=== PATIENT | male | born 1975 | race Caucasian/White ===

== ENCOUNTER 2017-01-11 23:36 | Emergency (ER) | payer OTHER ==
[2017-01-11 23:11] LABS: ASCORBIC ACID (UR NOT ORDER) 40 (NEG); BILIRUBIN, URINE NEGATIVE (NEG); ER URINALYSIS TAT 0 Hrs 00 Mins; KETONE, URINE NEGATIVE (NEG); LEUKOCYTE ESTERASE(NOT OR NEG (NEG); NITRITE (URINE) NEG (NEG); WBC (NOT ORDERED) (RFLEX) < 1 (0-5)
[~2017-01-11 23:36] MED LIST: ADVIL PO; ALEVE220 MG PO; ALTA5 PO; ATV1 PO; C5 PO; CAT3 PO; CELEXA20 PO; CELEXA40 MG PO; CENTRUM TAB1 TAB PO; FEMARA PO; FLOMAX4 PO; IBRANCE100 PO; LIQUID TEARS OPH; MSCONT100 PO; NATURL FIBER68 % PO; NEUR300 PO; OXYCOD PO; PCET PO; PERCOCET1 TA4 PO; POTASSIUM OTC PO; POTASSIUM PO; PROTONIX PO; ROXICODONE30 MG PO; T PO; TAMOXIFEN20 M1 PO; ZOFRAN4 PO
== END 2017-01-12 00:07 | disposition home or self-care (01) ==
LOC: ER 23:36
PROVIDERS: Emergency Medicine
DX: M79.2 Neuralgia and neuritis, unspecified (principal); Z87.891 Personal history of nicotine dependence; Z85.3 Personal history of malignant neoplasm of breast; Z85.841 Personal history of malignant neoplasm of brain; Z79.01 Long term (current) use of anticoagulants; Z79.899 Other long term (current) drug therapy
CPT/HCPCS: 72170; 73501-RT; 81001; 99284

== ENCOUNTER 2017-01-20 13:49 | Inpatient (IN) | payer OTHER ==
--- NOTE | ~2017-01-20 | HP ---
History And Physical [place] [id number] [facility] [place]. [address] NAME: CAMPOS PRUETT : 71 STATUS : ADM IN [facility]#: [id number] AGE: 41 ADM/REG DATE : 01/20/17 MR#: [id number] REPORT SERV DATE: 01/20/17 DICTATED BY: HEMANT THAPA II DATE: 01/20/17 REPORT STATUS : Draft TRANSCRIBED BY: MODL DATE: 01/20/17 DATE OF ADMISSION: 01/20/2017 PRIMARY ONCOLOGIST: Dr. Jeronimo Joseph. CHIEF COMPLAINT: Headache, jaw numbness, and severe mid thoracic back pain. HISTORY OF PRESENT ILLNESS: The patient is a 41-year-old male with a history of metastatic breast cancer followed by Dr. Jeronimo Joseph, who presented from his clinic due to severe intractable back pain. The patient states he has had chronic back pain ever since he was found to have metastatic lesions to his spine and pelvis back in September. However, over the last month or so, the patient's back pain has become increasingly worse and now he is having radiating pain throughout his rib cage on the right side to where he can now barely ambulate without severe pain. He denies any radiating pain down his legs or weakness in his legs or upper extremities. His limitation is mainly due to pain. He also complains about a severe headache over the last week, which is bitemporal and constant. His main neurologic complaint is right jaw numbness which extends to the midline, that has been present since September. According to Dr. Garcia's note, he looked at the patient under CT while doing his simulation, but according to the patient, did not see anything obvious. Dr. Joseph was concerned he may have some metastatic component causing his symptoms. The patient has been admitted for further imaging and pain control. Otherwise, the patient denies any shortness of breath, chest pain, nausea, vomiting, or diarrhea. REVIEW OF SYSTEMS: 10-point review of systems is otherwise negative except for HPI. PAST MEDICAL HISTORY: 1. Metastatic breast cancer, status post chemo and radiation. Currently on Xeloda. Followed by Dr. Jeronimo Joseph. 2. Hypertension. 3. 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 PAST SURGICAL HISTORY: Left mastectomy, lung biopsy, and appendectomy. FAMILY HISTORY: Maternal grandmother with cancer of unknown type. SOCIAL HISTORY: The patient is . Lives with and daughter. He smoked about a pack a day for 20-25 years, but quit at the age 35. He drinks occasional alcohol. ALLERGIES: NO KNOWN DRUG ALLERGIES. HOME MEDICATIONS: Celexa, Neurontin, Aleve, Protonix, potassium, gluconate. PHYSICAL EXAMINATION: History And Physical [address] [address] NAME: CAMPOS PREUTT : 71 STATUS : ADM IN PAT#: [id number] AGE: 41 ADM/REG DATE : 01/20/17 MR#: [id number] REPORT SERV DATE: 01/20/17 DICTATED BY: HEMANT THAPA II DATE: 01/20/17 REPORT STATUS : Draft TRANSCRIBED BY: ARIELA DATE: 01/20/17 VITAL SIGNS: Blood pressure 171/79, O2 saturation 98% on room air, temperature 98.4, pulse 86, respirations 18. GENERAL: The patient is alert and oriented x3. No acute distress. NECK: Supple. Nontender. No lymphadenopathy or thyromegaly. HEENT: Moist mucous membranes. Pupils are equal, round, and reactive to light. Conjunctivae clear. RESPIRATORY: Lungs are clear to auscultation bilaterally. No wheezes, rhonchi, or rales. CHEST: He does have tenderness to palpation over the right lateral rib cage and into the back. CARDIOVASCULAR: Regular rate and rhythm. No murmurs, rubs, or gallops. ABDOMEN: Soft, nontender, nondistended. Normoactive bowel sounds. EXTREMITIES: No cyanosis, clubbing, or edema. SKIN: No lesions, rashes, or wounds. NEURO: Diminished sensation to light touch over the right mandible to midline. Otherwise, no deficits. Cranial nerves 2 through 12 intact. LABORATORY DATA: Pending. ASSESSMENT AND PLAN: The patient is a 41-year-old male with: 1. Severe back pain concerning for progressive disease of the spine. The patient does not complain of any lower extremity radiculopathy or weakness to suggest cord compression, and his pain extending around to his ribs could certainly be a radiculopathy component, but seems fairly diffuse throughout his ribcage, possibly extensive rib metastases. We will obtain a CT of his spine with contrast to rule out any neurologic encroachment. Otherwise, placed on a JAIL MANAGER for pain control. 2. Severe bitemporal headache. We will check an MRI of the brain. 3. Right mandibular numbness concerning for metastatic spread. Extend the MRI of the brain down to the jaw. 4. Metastatic breast cancer, on Xeloda. Deferred to Oncology. 5. Peripheral neuropathy, gabapentin. 6. Patient is full code. 7. DVT prophylaxis with Lovenox. JESSICA/ARIELA Hemant Thapa II, MD / [id number] CC: Hemant Thapa II, MD
--- NOTE | ~2017-01-20 | DS ---
Discharge Summary [facility] [address] [place]. [address] NAME: CAMPOS PRUETT : 71 STATUS : DIS IN PAT#: [id number] AGE: 41 ADM/REG DATE : 01/20/17 MR#: [id number] REPORT SERV DATE: 01/24/17 DICTATED BY: DATE: REPORT STATUS : Draft TRANSCRIBED BY: MODL DATE: 01/23/17 ADMISSION DATE: 01/20/2017 DISCHARGE DATE: 01/23/2017 CONSULTATIONS: 1. Jeronimo Joseph M.D., [facility]. 2. Santi Garcia M.D., Radiation Oncology. PERTINENT TESTS AND PROCEDURES: 1. CT of the cervical, thoracic, and lumbar spine with contrast, 01/20/2017: Impression: Widespread metastatic disease, most severe in the lower thoracic and lumbar regions. There does not appear to be any central canal compromise noted. Findings consistent with the patient's history of breast cancer and metastatic disease. 2. MRI of the brain without contrast, 01/20/2017: Impression: Skull, mandibular, and intracranial metastases identified. 3. MRA/MRI of the brain with and without contrast, 01/22/2017: Impression:. a. Focal lesions within the brain, primarily the left parietal lobe and cerebellum, with very faint enhancement consistent with metastasis. No new abnormalities compared with 01/20/2017 imaging. b. Abnormal marrow signal consistent with metastatic disease in the mandible and clivus. CHIEF COMPLAINT UPON ADMISSION: Headache, jaw numbness, and severe mid thoracic back pain. HOSPITAL COURSE: Please refer to history and physical dated 01/20/[address] Black Herrera for complete details pertaining to the patient's initial presentation upon admission and health history. Briefly, the patient is a 41-year-old male with a history of metastatic breast cancer to the lung and bone, followed by Dr. Jeronimo Joseph of [facility]. The patient presented to [facility] on 01/20/2017 for a work-in visit to be evaluated for severe intractable back pain. The patient has experienced chronic back pain ever since being diagnosed with metastatic lesions to his spine and pelvis in 09/2016. However, over the past month, the patient's back pain has become increasingly worse and now it is radiating throughout his ribcage. The patient also complained of severe headache and right jaw numbness. The patient was referred for direct admission to [facility] for further evaluation and treatment for severe back pain concerning for progressive disease of the spine. During this admission, MRI of the brain with and without contrast was obtained and reported new SEASONAL CLERK involvement to include the mandible, skull, brain, and clivus. The patient was placed on low-dose dexamethasone 2 mg p.o. twice daily and Radiation Oncology was consulted for outpatient followup in the near future. 1. Severe back/right rib pain. This is secondary to thoracic, lumbar, and pelvis Discharge Summary [facility] [address] [facility] [place]. [address] NAME: CAMPOS PRUETT : 71 STATUS : DIS IN PAT#: [id number] AGE: 41 ADM/REG DATE : 01/20/17 MR#: [id number] REPORT SERV DATE: 01/24/17 DICTATED BY: DATE: REPORT STATUS : Draft TRANSCRIBED BY: MODL DATE: 01/23/[address] of the spine was negative for canal compromise. The patient was initially placed on Dilaudid BOX SEALING MACHINE OPERATOR pump due to intractable pain and then MS Contin q.12 h. was added. The patient responded well to addition of MS Contin and BOX SEALING MACHINE OPERATOR pump was discontinued today. The patient will continue MS Contin SR 60 mg p.o. every 12 hours and morphine sulfate IR 30 mg p.o. every six hours as needed for fxotbptz-se-mztcus breakthrough pain. 2. Severe bitemporal headache. This is related to new SEASONAL CLERK metastases. The patient was placed on low dose of dexamethasone per Oncology. The patient has responded well to this treatment. Headache remains persistent, but manageable. 3. Right mandibular numbness. This is secondary to new diagnosis of metastases to the mandible. The patient will follow up with Radiation Oncology for evaluation and treatment plan within the near future. 4. Metastatic breast cancer, left breast, status post left mastectomy. The patient is status post chemotherapy and radiation treatment. The patient is currently on Xeloda. This medication will be continued. The patient will follow up with Dr. Jeronimo Joseph in 10 days. 5. 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 This was secondary to pathological fracture related to metastases. No interventions were indicated during this admission. 6. Chronic anemia. This is secondary to underlying chronic disease. The patient's hemoglobin and hematocrit remained stable with no transfusions indicated during this admission. 7. Hypertension. The patient has recent history of taking ramipril 5 mg tablet p.o. daily and clonidine 0.3 mg p.o. three times daily. The patient reported that these medications were discontinued per Dr. Joseph approximately two weeks ago secondary to hypotension. During this admission, the patient's systolic blood pressure has ranged between 137 and 180. The patient stated he had noticed a recent upward trend in his blood pressure over the last few days at home. Ramipril 5 mg p.o. daily was reinitiated. Dr. Joseph said he would monitor blood pressure and restart clonidine if indicated. 8. Peripheral neuropathy. This is chemo-induced. Continue home dose of gabapentin. 9. Depression. The patient's mental status remained baseline throughout this admission. Continue home dose of Celexa. DISCHARGE CONDITION: At the time of discharge, the patient is hemodynamically stable. DISCHARGE DIET: Regular diet as tolerated. DISCHARGE MEDICATIONS: 1. Celexa 40 mg tablet p.o. daily. 2. Decadron 2 mg tablet p.o. with breakfast and supper. 3. Gabapentin 300 mg tablet p.o. twice daily. 4. MS Contin SR tablet 60 mg p.o. every 12 hours. 5. Protonix 40 mg tablet p.o. daily. 6. MiraLAX 17 g p.o. daily. 7. Ramipril 5 mg tablet p.o. daily. 8. Senokot two tablets p.o. at bedtime as needed. 9. Potassium gluconate 99 mg p.o. daily. Discharge Summary [address] [address] NAME: CAMPOS PRUETT : 71 STATUS : DIS IN PAT#: [id number] AGE: 41 ADM/REG DATE : 01/20/17 MR#: [id number] REPORT SERV DATE: 01/24/17 DICTATED BY: DATE: REPORT STATUS : Draft TRANSCRIBED BY: MODL DATE: 01/23/17 10.Morphine sulfate 30 mg IR tablet p.o. every six hours as needed for swicybid-df-lkpqpy breakthrough pain. Hold for sedation. DISCHARGE INSTRUCTIONS: 1. Follow up with Dr. Jeronimo Joseph of [facility] in 10 days. 2. Follow up with Dr. Garcia of Radiation Oncology. Office will call the patient at home to set up appointment. The patient was educated to return to the emergency department for any acute onset of severe intractable headache, visual disturbances, syncopal or near syncopal episodes, intractable pain that is not controlled with home medications or any other health concerns that are deviations from his baseline status at the time of this discharge. GABBY/ARIELA SEN Crandall / [id number] CC: Black Herrera II, MD
[2017-01-20] MEDS ORDERED: CELEXA40 MG PO (15:19)
[2017-01-20] MEDS ORDERED: PROTONIX PO (15:20)
[2017-01-20] MEDS ORDERED: NEUR300 PO (15:20)
[2017-01-20] MEDS ORDERED: ALEVE220 MG PO (15:20)
[2017-01-20] MEDS ORDERED: POTASSIUM GLUCO99 MG PO (15:21)
[2017-01-20 16:29] LABS: BASOPHILS 0.1 %; BASOPHILS ABSOLUTE 0.01 10/3/uL (0.0-0.16); EOSINOPHILS ABSOLUTE 0.07 10/3/uL (0.0-0.53); HEMATOCRIT 35.3 % (40.0-51.0); HEMOGLOBIN 11.7 g/dL (13.6-17.8); IMMATURE GRANULOCYTES 0.1 %; IMMATURE GRANULOCYTES ABSOLUTE 0.01 10/3/uL (0.0-0.11); LYMPHOCYTES 11.3 %; LYMPHOCYTES ABSOLUTE 0.76 10/3/uL (0.67-4.30); MEAN CORPUS HGB CONC 33.1 g/dL (32.0-36.0); MEAN CORPUSCULAR HEMOGLOB 32.8 pg (26.0-34.0); MEAN CORPUSCULAR VOLUME 98.9 fL (80-100); MEAN PLATELET VOLUME 9.2 fL (9.2-13.0); MONOCYTES 6.5 %; MONOCYTES ABSOLUTE 0.44 10/3/uL (0.21-1.20); NEUTROPHILS ABSOLUTE 5.45 10/3/uL (2.02-8.40); PLATELET COUNT 205 10/3/uL (150-400); RBC DISTRIBUTION WIDTH 18.5 % (12.0-16.0); RED CELL COUNT 3.57 10/6/uL (4.7-6.1); WHITE BLOOD CELLS 6.7 10/3/uL (4.5-10.5)
[2017-01-20 16:30] LABS: MANUAL DIFF NO %
[2017-01-20 16:42] LABS: A/G RATIO 0.9 (0.7-1.9); ALBUMIN 3.5 G/DL (3.5-5.0); ALKALINE PHOSPHATASE 157 U/L (45-117); BUN (BLOOD UREA NITROGEN) 9 MG/DL (6-23); CHLORIDE, SERUM 104 MMOL/L (96-112); CO2 (CARBON DIOXIDE) 27 MMOL/L (24-34); CREATININE 0.91 MG/DL (0.70-1.30); GFR AFRICAN AMERICAN 119 ML/MIN (>=60); GFR NON AFRICAN AMERICAN 103 ML/MIN (>=60); GLOBULIN 4.1 G/DL (2.5-4.1); GLUCOSE, SERUM 100 MG/DL (60-99); SGOT(AST) 20 U/L (5-40); SGPT(ALT) 18 U/L (5-65); SODIUM, SERUM 140 MMOL/L (135-148); TOTAL BILIRUBIN 0.4 MG/DL (0-1.2); TOTAL PROTEIN 7.6 G/DL (6.0-8.5)
[2017-01-22 07:53] LABS: BASOPHILS 0 %; EOSINOPHILS 0.2 %; EOSINOPHILS ABSOLUTE 0.01 10/3/uL (0.0-0.53); HEMATOCRIT 35.1 % (40.0-51.0); HEMOGLOBIN 11.9 g/dL (13.6-17.8); IMMATURE GRANULOCYTES 0.2 %; IMMATURE GRANULOCYTES ABSOLUTE 0.01 10/3/uL (0.0-0.11); LYMPHOCYTES ABSOLUTE 0.62 10/3/uL (0.67-4.30); MEAN CORPUS HGB CONC 33.9 g/dL (32.0-36.0); MEAN CORPUSCULAR HEMOGLOB 32.8 pg (26.0-34.0); MEAN CORPUSCULAR VOLUME 96.7 fL (80-100); MONOCYTES 3.7 %; MONOCYTES ABSOLUTE 0.23 10/3/uL (0.21-1.20); NEUTROPHILS 85.9 %; NEUTROPHILS ABSOLUTE 5.33 10/3/uL (2.02-8.40); PLATELET COUNT 208 10/3/uL (150-400); RED CELL COUNT 3.63 10/6/uL (4.7-6.1); WHITE BLOOD CELLS 6.2 10/3/uL (4.5-10.5)
[2017-01-22 07:56] LABS: MANUAL DIFF NO %
[2017-01-22 08:03] LABS: BUN (BLOOD UREA NITROGEN) 10 MG/DL (6-23); CALCIUM, SERUM 9.4 MG/DL (8.5-10.4); CHLORIDE, SERUM 102 MMOL/L (96-112); CO2 (CARBON DIOXIDE) 28 MMOL/L (24-34); CREATININE 0.86 MG/DL (0.70-1.30); GFR AFRICAN AMERICAN 123 ML/MIN (>=60); GFR NON AFRICAN AMERICAN 106 ML/MIN (>=60); SODIUM, SERUM 138 MMOL/L (135-148)
[2017-01-22 08:06] LABS: GLUCOSE, SERUM 122 MG/DL (60-99)
[2017-01-23 06:17] LABS: BASOPHILS 0 %; EOSINOPHILS 0 %; HEMATOCRIT 35.7 % (40.0-51.0); HEMOGLOBIN 11.7 g/dL (13.6-17.8); IMMATURE GRANULOCYTES 0.1 %; IMMATURE GRANULOCYTES ABSOLUTE 0.01 10/3/uL (0.0-0.11); LYMPHOCYTES 11.8 %; LYMPHOCYTES ABSOLUTE 0.81 10/3/uL (0.67-4.30); MEAN CORPUS HGB CONC 32.8 g/dL (32.0-36.0); MEAN CORPUSCULAR HEMOGLOB 32.6 pg (26.0-34.0); MEAN CORPUSCULAR VOLUME 99.4 fL (80-100); MEAN PLATELET VOLUME 8.9 fL (9.2-13.0); MONOCYTES 5.5 %; MONOCYTES ABSOLUTE 0.38 10/3/uL (0.21-1.20); NEUTROPHILS 82.6 %; NEUTROPHILS ABSOLUTE 5.69 10/3/uL (2.02-8.40); PLATELET COUNT 216 10/3/uL (150-400); RBC DISTRIBUTION WIDTH 18.2 % (12.0-16.0); RED CELL COUNT 3.59 10/6/uL (4.7-6.1); WHITE BLOOD CELLS 6.9 10/3/uL (4.5-10.5)
[2017-01-23 06:22] LABS: MANUAL DIFF NO %
[2017-01-23 06:29] LABS: BUN (BLOOD UREA NITROGEN) 11 MG/DL (6-23); CALCIUM, SERUM 9.3 MG/DL (8.5-10.4); CHLORIDE, SERUM 103 MMOL/L (96-112); CO2 (CARBON DIOXIDE) 28 MMOL/L (24-34); CREATININE 0.93 MG/DL (0.70-1.30); GFR AFRICAN AMERICAN 116 ML/MIN (>=60); GFR NON AFRICAN AMERICAN 100 ML/MIN (>=60); GLUCOSE, SERUM 124 MG/DL (60-99); POTASSIUM, SERUM 3.7 MMOL/L (3.5-5.3); SODIUM, SERUM 140 MMOL/L (135-148)
[2017-01-23] MEDS ORDERED: ALTA5 (12:17)
[2017-01-23] MEDS ORDERED: SENTAB PO (12:17)
[2017-01-23] MEDS ORDERED: MSCONT60 PO (12:19)
[2017-01-23] MEDS ORDERED: DEX2 PO (12:20)
[2017-01-23] MEDS ORDERED: MSIMMREL PO (12:21)
[2017-01-23] MEDS ORDERED: MIRALAX POWDER1 PKT PO (12:22)
== END 2017-01-23 13:30 | disposition home or self-care (01) | DRG 543 ==
LOC: 4EA 13:49
PROVIDERS: Internal Medicine; Nurse Practitioner Family
DX: C79.51 Secondary malignant neoplasm of bone (principal); C78.00 Secondary malignant neoplasm of unspecified lung; C50.922 Malignant neoplasm of unspecified site of left male breast; F32.9 Major depressive disorder, single episode, unspecified; I10 Essential (primary) hypertension; D64.9 Anemia, unspecified; G62.9 Polyneuropathy, unspecified
CPT/HCPCS: 70551; 70553; 72126; 72129; 72132; 80048; 80053; 85025; A9270-GY; A9577; J0360; Q9967

== ENCOUNTER 2017-02-27 19:48 | Inpatient (IN) | payer OTHER ==
--- NOTE | ~2017-02-27 | HP ---
History And Physical [place] [address] [place]. [address] NAME: CAMPOS PRUETT : 71 STATUS : ADM IN PAT#: [id number] AGE: 41 ADM/REG DATE : 02/27/17 MR#: [id number] REPORT SERV DATE: 02/28/17 DICTATED BY: RADAMES PANDEY DATE: 02/28/17 REPORT STATUS : Draft TRANSCRIBED BY: MODL DATE: 02/28/17 DATE OF ADMISSION: 02/27/2017 CHIEF COMPLAINT: A 41-year-old male with metastatic breast cancer, now presenting with intractable abdominal pain, nausea, vomiting, and diarrhea. HISTORY OF PRESENT ILLNESS: The patient's history was obtained through careful interview with the patient and , coupled with review of [facility] medical records. The patient first developed breast cancer in 2013, was found to be metastatic at that time. He is on chronic Xeloda and has had significant radiation therapy as well. He follows with Dr. Jeronimo Joseph and Dr. Garcia. His last radiation treatment was completed about 1-1/2 weeks ago. Recently in 2017, he has had evidence of spread into the brain and other parts of his body. Over the last week, he has had increasing abdominal pain. He describes it mostly as an upper abdominal discomfort that radiates diffusely. He describes the quality as "huge knots" 10/10 severity, unremitting, associated with nausea, vomiting, and diarrhea. He has also had rawness in his mouth with multiple ulcers forming, and it has gotten so bad that he cannot even eat or drink anything because of severity of pain. He has been trying some Magic mouthwash with only limited improvement in his symptoms. He has had a very poor appetite and poor oral intake. Recently, he has had lower back discomfort, chills but no fevers, some night sweats. He has been lethargic. He has lost about 10 pounds over the last few months. No chest pain. No shortness of breath. No headache. REVIEW OF SYSTEMS: Otherwise, a 14-point review of systems was obtained and was negative. PAST MEDICAL HISTORY: 1. Breast cancer with mets including the brain, followed by Dr. Jeronimo Joseph and Dr. Garcia. 2. Hypertension. 3. Neuropathy. PAST SURGICAL HISTORY: 1. Left mastectomy. 2. Appendectomy. 3. Right hip surgery. History And Physical [place] [address] [facility] [place]. [address] NAME: CAMPOS PRUETT : 71 STATUS : ADM IN [facility]#: [id number] AGE: 41 ADM/REG DATE : 02/27/17 MR#: [id number] REPORT SERV DATE: 02/28/17 DICTATED BY: RADAMES PANDEY DATE: 02/28/17 REPORT STATUS : Draft TRANSCRIBED BY: ARIELA DATE: 02/28/17 ALLERGIES: NO KNOWN DRUG ALLERGIES. SOCIAL HISTORY: Quit smoking when he was 35 years old. Drinks occasional social alcohol. He is . He has a 14-year-old daughter and 19-year-old son. He lives in [place], [place]. FAMILY HISTORY: Grandmother with cancer. CURRENT MEDICATIONS: Include Xeloda 2000 mg p.o. b.i.d., Celexa 40 mg p.o. daily, Neurontin 300 mg p.o. b.i.d., MS Contin 60 mg p.o. b.i.d., morphine immediate release 30 mg every 6 hours p.r.n., Movantik 25 mg p.o. daily, Zofran p.r.n., Protonix 40 mg p.o. daily, ramipril 5 mg p.o. daily, trazodone 50 mg p.o. at bedtime, and Magic mouthwash. PHYSICAL EXAMINATION: VITAL SIGNS: Temperature 98.7, pulse 100, blood pressure 128/78, respiratory rate 19, O2 saturation 98% on room air. GENERAL: A chronically ill-appearing male in evidence of distress secondary to abdominal pain and vomiting. HEENT: Pupils are equal, round, and reactive to light. No conjunctival pallor. No scleral icterus. Nares are patent. Oropharynx is clear of obstruction. Dry mucous membranes. NECK: Trachea midline. No thyromegaly. LYMPH: No cervical lymphadenopathy. No supraclavicular lymphadenopathy. RESPIRATORY: Clear to auscultation at bases. No wheezes, rales, or rhonchi. Normal respiratory effort. CARDIOVASCULAR: Tachycardic, regular rhythm. No murmurs, rubs, or gallops. No extremity edema is appreciated. ABDOMEN: Diffusely tender by exam, nonfocal. There is guarding and rebound. It is distended. There are diminished bowel tones. No hepatosplenomegaly. DERMATOLOGICAL: Warm and dry extremities. No pallor. No cyanosis. PSYCHIATRIC: Normal affect. Good mood. Alert and oriented x3. LABORATORY DATA: Lactic acid elevated at 4.4. Liver enzymes within normal limits. White blood cell count 7.0, hemoglobin 14, hematocrit 42, platelets 246. Sodium 142, potassium 3.9, chloride 109, bicarb 21, BUN 15, creatinine 1.36 from baseline creatinine of 0.9, glucose 164. STUDIES: 1. 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 No specific acute intraabdominal process. 2. Chest x-ray by my own evaluation shows fullness in the right hilum it seems. ASSESSMENT AND PLAN: 1. Severe intractable abdominal pain. Place on a MATLAB DEVELOPER Dilaudid. Provide supportive care. 2. Metastatic breast cancer, worsening. Consult Oncology. 3. Oral ulcers, unable to eat. Start Magic mouthwash. 4. Diarrhea. Check Clostridium difficile toxin. 5. Acute kidney injury. Place on IV fluids. History And Physical [address] [address] NAME: CAMPOS PRUETT : 71 STATUS : ADM IN [facility]#: [id number] AGE: 41 ADM/REG DATE : 02/27/17 MR#: [id number] REPORT SERV DATE: 02/28/17 DICTATED BY: RADAMES PANDEY DATE: 02/28/17 REPORT STATUS : Draft TRANSCRIBED BY: MODL DATE: 02/28/17 6. Lactic acidosis. Question whether this could be the beginning of bowel ischemic changes ?. We will place on IV fluids, provide supportive care, and follow lactic acid closely. KPL/MODL Radames Pandey M.D. / [id number] CC: MD Jeronimo Aparicio II, M.D. John A Fortney, M.D.
--- NOTE | ~2017-02-27 | DS ---
Discharge Summary [address] [place]. [address] NAME: CAMPOS PRUETT : 71 STATUS : DIS IN PAT#: [id number] AGE: 41 ADM/REG DATE : 02/27/17 MR#: [id number] REPORT SERV DATE: 03/01/17 DICTATED BY: DATE: REPORT STATUS : Draft TRANSCRIBED BY: MODL DATE: 02/28/17 ADMISSION DATE: 02/27/2017 DISCHARGE DATE: 02/28/2017 DISCHARGE DIAGNOSES: 1. Acute intractable abdominal pain. 2. Metastatic breast cancer. 3. Oral ulcers. 4. Acute diarrhea. 5. Peripheral neuropathy. 6. Mild increase in creatinine. 7. Elevated liver enzymes. 8. Hypertension. CONSULTATIONS: None. PERTINENT TESTS AND PROCEDURES: 1. CT of the abdomen and pelvis without contrast on 02/27/2017, impression:. a. New 5 mm right lower lobe, and the lingular segment 7 mm pulmonary nodule, as well as stable additional multifocal pulmonary nodules, right middle lobe and both lower lobes, suspicious for mild interval progression of pulmonary metastatic disease. b. New multifocal osteoblastic and lytic bone lesions including multiple ribs, multiple thoracic and lumbar vertebra, sacrum, bilateral iliac, right pubic symphysis, and left femoral neck, and intertrochanteric portion of the left proximal femur. c. Interval status right hip hemiarthroplasty. d. Hepatic steatosis superimposed, scattered hyperdense nodules most suspicious for development of liver metastatic disease. 2. Chest x-ray on 02/27/2017, impression; atelectasis in left perihilar region has resolved. Pulmonary vessels are normal. Lungs are clear. Osseous structures intact. 3. Urinalysis, specimen collected on 02/28/2017, result negative for urinary tract infection. HOSPITAL COURSE: Please refer to history and physical dated 02/28/[address] Timmy English for complete details pertaining to the patient's initial presentation upon admission and health history. Briefly, the patient is a 41-year-old male, with a history of metastatic breast cancer, who presented to the emergency department on 02/27/2017, with complaints of intractable abdominal pain, nausea, vomiting, and diarrhea. The patient reported mild abdominal pain over the past week, increasing in severity over the last 24 to 48 hours prior to admission. The patient also reported acute onset of nausea with vomiting and diarrhea. Initial diagnostic workup included CT of the abdomen and chest which showed new right lung Discharge Summary [address] [place]. [address] NAME: CAMPOS PRUETT : 71 STATUS : DIS IN PAT#: [id number] AGE: 41 ADM/REG DATE : 02/27/17 MR#: [id number] REPORT SERV DATE: 03/01/17 DICTATED BY: DATE: REPORT STATUS : Draft TRANSCRIBED BY: MODL DATE: 02/28/17 disease, osteoblastic disease, and likely liver metastatic disease. Otherwise, no acute intraabdominal processes were identified. The patient was admitted for further evaluation and treatment of severe intractable abdominal pain, with no clear etiology. The patient was placed on full liquid diet and provided a Dilaudid BOY'S ADVISER pump for intractable pain. The patient responded well to the pain management regimen and aggressive IV fluid therapy. Abdominal pain has almost completely resolved and the patient has had no episodes of diarrhea since last night. Per patient report, he is almost returned to baseline status. 1. Acute intractable abdominal pain, etiology remained unclear. Initial diagnostic workup was negative for any underlying infection or acute intraabdominal process. The patient has tolerated a full liquid diet throughout this entire day without any increase in abdominal pain, or nausea and vomiting. The patient will go home on a full liquid diet to increase in a stepwise fashion as tolerated. He will also be provided a prescription for Phenergan tablets to use every six hours as needed for nausea and vomiting. 2. Metastatic breast cancer. The patient has known metastases to lung, bone, and EVENT PLANNING INTERN. CT of the abdomen and pelvis obtained during this admission, showed concern for disease progression, to include possible new liver metastases. The patient is currently under the care of Dr. Jeronimo Joseph, [facility]. Currently, the patient is receiving Xeloda on an outpatient basis. This is patient's week off therapy, the patient just completed radiation therapy to treat EVENT PLANNING INTERN metastases. Follow up with Dr. Jeronimo Joseph on 03/09/2017 as scheduled. 3. Oral ulcers, this is secondary to radiation therapy to treat metastases to the mandible. The patient has had limited response with MD Barajas mouthwash, however, ulcers are improving per patient report. 4. Acute diarrhea. The patient reported uncontrolled diarrhea on Monday, however last episode was last night. Stool studies were not obtained, secondary to diarrhea resolving. This may be related to patient's Dilaudid therapy, however, may also be related to acute viral syndrome. The patient was instructed to hold Movantik until diarrhea has completely resolved. 5. Peripheral neuropathy. This is chemotherapy induced, continue home dose of gabapentin. 6. Mild increase in creatinine. This was likely related to dehydration, secondary to nausea and vomiting. The patient's creatinine returned to normal with aggressive IV fluid hydration. BUN and creatinine are 15 and 1.02 today. 7. Elevated lactate. Upon admission lactate was 4.4, however, there were no clinical signs or symptoms of infection and diagnostic evaluation to include imaging negative for underlying infectious process. Lactate trended down to 2.5 today and white blood count has remained within normal limits. Exact etiology remains unclear. However, may be related to increase in liver enzymes during this admission. No signs or symptoms of sepsis. 8. Increased alkaline phosphatase. This may be related to new concern for liver metastases per report obtained from CT of the abdomen and pelvis. Alkaline phosphatases were initially elevated to 232 upon admission and trended down today to 192. All other liver enzymes are within normal limits. 9. Hypertension. Continue home medication. DISCHARGE CONDITION: At the time of discharge, the patient is hemodynamically stable. Discharge Summary [address] [address] NAME: CAMPOS PRUETT : 71 STATUS : DIS IN PAT#: [id number] AGE: 41 ADM/REG DATE : 02/27/17 MR#: [id number] REPORT SERV DATE: 03/01/17 DICTATED BY: DATE: REPORT STATUS : Draft TRANSCRIBED BY: ARIELA DATE: 02/28/17 DISCHARGE DIET: Full liquid diet to be advanced as tolerated. DISCHARGE MEDICATIONS: 1. Celexa 40 mg tablet p.o. daily. 2. Neurontin 300 mg tablet p.o. twice daily. 3. MS Contin 60 mg SR tablet p.o. twice daily. 4. Morphine immediate release 30 mg tablet p.o. every six hours as needed. 5. Protonix 40 mg tablet p.o. daily. 6. Altace 5 mg tablet p.o. daily. 7. Desyrel 50 mg tablet p.o. daily at bedtime. 8. Movantik 25 mg tablet p.o. daily as needed. 9. Zofran 8 mg tablet p.o. every eight hours as needed. 10.Magic mouthwash 15 mL p.o. every four hours as needed. 11.Xeloda 500 mg tablet, take 2000 mg twice daily x14 days. Hold for seven days and then repeat cycle. The patient is currently on off week, this medication will be restarted per [facility]. 12.Phenergan 25 mg tablet, take 1/2 to one tablet p.o. every six hours as needed for nausea. DISCHARGE INSTRUCTIONS: 1. Followup for scheduled outpatient CT scan of the chest, abdomen, and pelvis on 03/08/2017 per [facility]. 2. Follow up with Dr. Jeronimo Joseph office visit on 03/09/2017. The patient was instructed to return to the emergency department for any acute onset of fever 100.4 degrees or higher lasting more than one hour, recurrence of intractable abdominal pain, nausea, vomiting, uncontrolled diarrhea, or any other concerns that are deviations from his baseline health status at the time of this discharge. PRIMARY ONCOLOGIST: Jeronimo Joseph M.D. DICTATED BY: SEN Crandall/ARIELA SEN Crandall / [id number] CC: Black Herrera II, MD
[~2017-02-27 19:48] MED LIST changes: +ALTA5; +DEX2 PO; +MIRALAX POWDER1 PKT PO; +MSCONT60 PO; +MSIMMREL PO; +POTASSIUM GLUCO99 MG PO; +SENTAB PO
[2017-02-27 20:00] LABS: BASOPHILS 0.1 %; BASOPHILS ABSOLUTE 0.01 10/3/uL (0.0-0.16); EOSINOPHILS 0.1 %; EOSINOPHILS ABSOLUTE 0.01 10/3/uL (0.0-0.53); ER CBC TAT 0 Hrs 08 Mins; IMMATURE GRANULOCYTES 0.4 %; IMMATURE GRANULOCYTES ABSOLUTE 0.03 10/3/uL (0.0-0.11); LYMPHOCYTES 8.1 %; LYMPHOCYTES ABSOLUTE 0.57 10/3/uL (0.67-4.30); MEAN CORPUSCULAR HEMOGLOB 33.9 pg (26.0-34.0); MEAN CORPUSCULAR VOLUME 97.9 fL (80-100); MEAN PLATELET VOLUME 9.5 fL (9.2-13.0); MONOCYTES 7.8 %; MONOCYTES ABSOLUTE 0.55 10/3/uL (0.21-1.20); NEUTROPHILS 83.5 %; NEUTROPHILS ABSOLUTE 5.84 10/3/uL (2.02-8.40); PLATELET COUNT 246 10/3/uL (150-400); RBC DISTRIBUTION WIDTH 17.2 % (12.0-16.0)
[2017-02-27 20:01] LABS: HEMATOCRIT 42.7 % (40.0-51.0); HEMOGLOBIN 14.8 g/dL (13.6-17.8); MANUAL DIFF NO %; MEAN CORPUS HGB CONC 34.7 g/dL (32.0-36.0); RED CELL COUNT 4.36 10/6/uL (4.7-6.1)
[2017-02-27 20:16] LABS: A/G RATIO 0.9 (0.7-1.9); BUN (BLOOD UREA NITROGEN) 15 MG/DL (6-23); CALCIUM, SERUM 9.3 MG/DL (8.5-10.4); CHLORIDE, SERUM 109 MMOL/L (96-112); CO2 (CARBON DIOXIDE) 21 MMOL/L (24-34); CREATININE 1.36 MG/DL (0.70-1.30); GFR AFRICAN AMERICAN 73 ML/MIN (>=60); GFR NON AFRICAN AMERICAN 63 ML/MIN (>=60); GLOBULIN 4.3 G/DL (2.5-4.1); GLUCOSE, SERUM 164 MG/DL (60-99); POTASSIUM, SERUM 3.9 MMOL/L (3.5-5.3); SGOT(AST) 44 U/L (5-40); SGPT(ALT) 23 U/L (5-65); SODIUM, SERUM 142 MMOL/L (135-148); TOTAL BILIRUBIN 0.8 MG/DL (0-1.2); TOTAL PROTEIN 8.3 G/DL (6.0-8.5)
[2017-02-27 20:17] LABS: ALKALINE PHOSPHATASE 232 U/L (45-117)
[2017-02-27] MEDS ORDERED: MSCONT60 PO (20:57)
[2017-02-27] MEDS ORDERED: TRAZ50 PO (20:58)
[2017-02-27] MEDS ORDERED: [UNRECOGNIZED DRUG - OTHER] PO (20:58)
[2017-02-27] MEDS ORDERED: PROTONIX PO (20:59)
[2017-02-27] MEDS ORDERED: CELEXA40 MG PO (20:59)
[2017-02-27] MEDS ORDERED: ALTA5 PO (21:00)
[2017-02-27] MEDS ORDERED: ZOFRAN8 PO (21:00)
[2017-02-27] MEDS ORDERED: MSIMMREL PO (21:01)
[2017-02-27] MEDS ORDERED: XELODA PO (21:05)
[2017-02-27] MEDS ORDERED: MOVANTIK25 MG PO (21:06)
[2017-02-27] MEDS ORDERED: NEUR300 PO (21:10)
[2017-02-28 03:48] LABS: ASCORBIC ACID (UR NOT ORDER) NEG (NEG); BILIRUBIN, URINE NEGATIVE (NEG); KETONE, URINE TRACE MG/DL (NEG); LEUKOCYTE ESTERASE(NOT OR NEG (NEG); WBC (NOT ORDERED) (RFLEX) 5 (0-5)
[2017-02-28 06:10] LABS: BASOPHILS 0.2 %; BASOPHILS ABSOLUTE 0.01 10/3/uL (0.0-0.16); EOSINOPHILS 0.6 %; EOSINOPHILS ABSOLUTE 0.03 10/3/uL (0.0-0.53); HEMATOCRIT 34.6 % (40.0-51.0); HEMOGLOBIN 11.6 g/dL (13.6-17.8); IMMATURE GRANULOCYTES 0.4 %; IMMATURE GRANULOCYTES ABSOLUTE 0.02 10/3/uL (0.0-0.11); LYMPHOCYTES 16.6 %; LYMPHOCYTES ABSOLUTE 0.83 10/3/uL (0.67-4.30); MANUAL DIFF NO %; MEAN CORPUS HGB CONC 33.5 g/dL (32.0-36.0); MEAN CORPUSCULAR HEMOGLOB 33.4 pg (26.0-34.0); MEAN CORPUSCULAR VOLUME 99.7 fL (80-100); MEAN PLATELET VOLUME 9.5 fL (9.2-13.0); MONOCYTES 10.2 %; MONOCYTES ABSOLUTE 0.51 10/3/uL (0.21-1.20); PLATELET COUNT 178 10/3/uL (150-400); RBC DISTRIBUTION WIDTH 17.4 % (12.0-16.0); RED CELL COUNT 3.47 10/6/uL (4.7-6.1)
[2017-02-28 06:14] LABS: INTERNATIONAL NORMAL RATI 1.2 UNITS (-); PARTIAL THROMBO TIME 24.6 SEC (22.5-37.2); PROTIME (NOT ORD) 15.4 SEC (12.0-14.5)
[2017-02-28 06:32] LABS: ALBUMIN 3.2 G/DL (3.5-5.0); ALKALINE PHOSPHATASE 192 U/L (45-117); BUN (BLOOD UREA NITROGEN) 15 MG/DL (6-23); CALCIUM, SERUM 7.2 MG/DL (8.5-10.4); CHLORIDE, SERUM 113 MMOL/L (96-112); CO2 (CARBON DIOXIDE) 26 MMOL/L (24-34); CREATININE 1.02 MG/DL (0.70-1.30); GFR AFRICAN AMERICAN 104 ML/MIN (>=60); GFR NON AFRICAN AMERICAN 90 ML/MIN (>=60); GLOBULIN 3.2 G/DL (2.5-4.1); GLUCOSE, SERUM 106 MG/DL (60-99); PHOSPHORUS, SERUM 2.1 MG/DL (2.5-4.5); POTASSIUM, SERUM 3.8 MMOL/L (3.5-5.3); SGOT(AST) 33 U/L (5-40); SGPT(ALT) 17 U/L (5-65); SODIUM, SERUM 145 MMOL/L (135-148); TOTAL BILIRUBIN 0.6 MG/DL (0-1.2); TOTAL PROTEIN 6.4 G/DL (6.0-8.5)
[2017-02-28] MEDS ORDERED: PR25 PO (16:45)
== END 2017-02-28 17:02 | disposition home or self-care (01) | DRG 392 ==
LOC: ER 19:48 → 4EA 23:31
PROVIDERS: Internal Medicine; Nurse Practitioner Acute Care
DX: R10.9 Unspecified abdominal pain (principal); N17.9 Acute kidney failure, unspecified; E87.2 Acidosis; G62.9 Polyneuropathy, unspecified; C50.929 Malignant neoplasm of unspecified site of unspecified male breast; K12.1 Other forms of stomatitis; I10 Essential (primary) hypertension
CPT/HCPCS: 71010; 74176; 80053; 81001; 83605; 83690; 83735; 84100; 84443; 85025; 85610; 85730; 96374; 96375; 96376; 99285; A9270-GY; J1170; J2405; J2550

== ENCOUNTER 2017-03-07 23:50 | Inpatient (IN) | payer OTHER ==
--- NOTE | ~2017-03-07 | CONSULT ---
Radiation Oncology Consult [id number] [facility] [place]. [address] NAME: CAMPOS VALDIVIA : 71 STATUS : ADM Marcelo PAT#: [id number] AGE: 41 ADM/REG DATE : 03/07/17 MR#: [id number] REPORT SERV DATE: 03/09/17 DICTATED BY: YORDY JUNIOR DATE: 03/09/17 REPORT STATUS : Draft TRANSCRIBED BY: ARIELA DATE: 03/09/17 RADIATION ONCOLOGY CONSULTATION CLINICAL SUMMARY: A 41-year-old white male with metastatic breast cancer, status post radiotherapy to the pelvis, right hip, jaw, and also to the brain with stereotactic radiosurgery, and several spine lesions. HISTORY OF PRESENT ILLNESS: Mr. Valdivia was recently admitted for recurrent upper abdominal discomfort, cramping, and nausea. He was previously hospitalized two weeks ago for similar symptoms, which improved with increasing pain medication and supportive care. The symptoms have abated while on pain medication in the hospital. He has completed radiotherapy to lower thoracic spine approximately four weeks ago. He reports slowly increasing pain in the anterior pelvis as well as the bilateral hips over the past several months and currently requires long-acting morphine 60 mg twice daily. He is also under treatment with Dr. Joseph with systemic therapy. REVIEW OF SYSTEMS: An 11-point review of systems was obtained. Pertinent positives and negatives listed above. PAST MEDICAL HISTORY: Breast cancer with metastasis, neuropathy, hypertension, right hip surgery and replacement, left mastectomy, and appendectomy. SOCIAL HISTORY: He has quit smoking. Lives in [place], [place]. with 14-year- old daughter and 19-year-old son. FAMILY HISTORY: Grandmother with cancer. PHYSICAL EXAMINATION: GENERAL: A well-developed overweight white male sitting in exam chair, in no acute distress. Alert and oriented x4. Performance status 1 to 2. ENT: Moist mucosa. Hearing impaired. NECK: Supple without adenopathy or thyromegaly. EYES: Sclerae anicteric. Pupils equal, round, and reactive to light. PULMONARY: Clear to auscultation bilaterally. Good respiratory effort. CARDIOVASCULAR: Regular rate and rhythm. No peripheral edema. ABDOMEN: Soft, nontender, nondistended. Positive bowel sounds. NEUROLOGIC: Nonfocal. MUSCULOSKELETAL: Palpation of the bilateral hips elicits tenderness on the right greater than left hip, additionally in the anterior pelvic near the pubic symphysis on the right side and in the upper sacrum. IMAGING: Reviewed the images and agree with the above findings. ASSESSMENT AND PLAN: 1. Worsening pain in the bilateral hips, upper sacrum, and anterior pelvis: Review of Radiation Oncology Consult [address] [place]. [address] NAME: CAMPOS VALDIVIA : 71 STATUS : ADM Marcelo PAT#: [id number] AGE: 41 ADM/REG DATE : 03/07/17 MR#: [id number] REPORT SERV DATE: 03/09/17 DICTATED BY: YORDY JUNIOR DATE: 03/09/17 REPORT STATUS : Draft TRANSCRIBED BY: ARIELA DATE: 03/09/[address] images of the chest, abdomen, and pelvis reveals new or progressive lytic bone lesions. This corresponds to the pain demonstrated today. He has received short course of radiotherapy to multiple areas including the right hip and mid-upper right sacrum in late 2015. I recommended additional radiotherapy to the lytic lesions surrounding the right and left hip as well as the anterior right pubic symphysis and ramus. Additional radiotherapy to the upper sacrum/L5 enlarging tumor may also be beneficial. After discussion, the patient prefers to discuss this further with Dr. Garcia, who returns on Monday. I believe this is reasonable since pain at this time is controlled. We will arrange for CT simulation for potential radiotherapy planning following that appointment. 2. Systemic therapy: Recently started Xgeva as well as Xeloda per Dr. Joseph. 3. Recurrent nausea, vomiting, and abdominal discomfort: Previous radiotherapy to the lower thoracic spine in mid January, which may be causing gastric side effects and also uncontrolled pain may also be contributing, which should be addressed shortly; however, this would not explain the recurrent nature of his current symptoms. Deferred to hospitalist for further workup and evaluation. LUIS/ARIELA Yordy Junior MD / [id number] CC: Odalys Garcia M.D. Kevin P Luce, M.D. John A Fortney, M.D.
--- NOTE | ~2017-03-07 | DS ---
Discharge Summary [address] [id number] [facility] [place]. [address] NAME: CAMPOS PRUETT : 71 STATUS : DIS IN PAT#: [id number] AGE: 41 ADM/REG DATE : 03/07/17 MR#: [id number] REPORT SERV DATE: 03/14/17 DICTATED BY: TOMMY DALLAS DATE: 03/13/17 REPORT STATUS : Draft TRANSCRIBED BY: MODL DATE: 03/13/17 ADMISSION DATE: 03/07/2017 DISCHARGE DATE: 03/13/2017 DISCHARGE DIAGNOSES: 1. Bilateral hip and low back pain due to metastatic breast cancer. 2. Nausea and vomiting, controlled. 3. Metastatic breast cancer. 4. Diarrhea/constipation, resolved. 5. Acute kidney injury, resolved. CONSULTATION: 1. Oncology, Dr. Jeronimo Joseph. 2. Radiation Oncology, Dr. Yordy Junior. IMAGIN. CT chest, abdomen, and pelvis on 03/08/2017. Impression: Metastatic breast cancer with left hilar and mediastinal adenopathy. There are several bilateral lung nodules. The largest is a left 1.7 cm. The largest on the right is 1.6 cm. There are few liver metastasis involving both the right and left lobes of the liver. The largest is 3 cm. The patient has diffuse fatty infiltration of liver. Extensive bone metastasis involving right ribs, right scapula, thoracic vertebral bodies, lumbar vertebral bodies, sacral vertebral bodies, and both iliac bones and left femur. 2. Chest x-ray on 03/10/2017. Impression: Interval development of diffuse central interstitial thickening suggesting edema with trace right pleural effusion, unchanged right chest Port-A-Cath. 3. MRI of the brain, 03/10/2017. Impression: Mild interval improvement in diminishing size of pre-existing left supratentorial and left cerebral anti-nodules/metastasis. No new metastasis. Significant interval improvement in the subcaudal edema associated with posterior left portal lobe since 01/22/2017. LABORATORY DATA: WBCs 3.5, hemoglobin 8.9, hematocrit 26.6, and platelet count 121. Sodium is 141, potassium is 4.2, chloride is 108, CO2 of 27, BUN is 7, creatinine 0.87, glucose is 80, calcium is 8.1. HOSPITAL COURSE: Please refer to history and physical dictated on 03/08/[address] Timmy English as well as consultation notes. This is a 41-year-old male, presenting with metastatic breast cancer under the care of Dr. Jeronimo Joseph. He did present in [facility]'s Emergency Room with complaints of intractable nausea, vomiting, diarrhea, and abdominal pain. Stating that he has had no relief over the past several days prior to this admission. 1. Bilateral hip and lower back pain due to #3. The patient had uncontrolled pain at home. Had previously been on MS Contin, and oxycodone. The patient was initially placed on a Dilaudid FLATWORK PRESSER pump. Duragesic was then added, MS Contin was discontinued as Discharge Summary [id number] [place]. [address] NAME: CAMPOS PRUETT : 71 STATUS : DIS IN [facility]#: [id number] AGE: 41 ADM/REG DATE : 03/07/17 MR#: [id number] REPORT SERV DATE: 03/14/17 DICTATED BY: TOMMY DALLAS DATE: 03/13/17 REPORT STATUS : Draft TRANSCRIBED BY: ARIELA DATE: 03/13/17 the patient has been off FLATWORK PRESSER pump for approximately 48 hours. The pain is being controlled with Duragesic 75 mcg patch, change every 72 hours as well as Dilaudid 4 mg p.o. every 4 hours for breakthrough pain. 2. Nausea and vomiting due to chemo. The patient again was unable to tolerate p.o. at home. Initially, started on a clear liquid diet. Zofran, Compazine, and Ativan were added. The patient's nausea has been controlled, he will be discharged home with the addition of Ativan to his medications. 3. Metastatic breast cancer followed by Dr. Jeronimo Joseph. The patient has been followed with Dr. Joseph during this hospital stay. We will follow up with him outpatient in two to three days to discuss further treatment plans. 4. Diarrhea/constipation. The patient initially stated he had diarrhea. Stool studies were negative due possibly to narcotics. The patient did experience constipation. The patient has been advised to continue stool softeners at home due to the medications he is now taking. He did state understanding. 5. Acute kidney injury. The patient noted initial acute kidney injury upon admission, following IV hydration this was resolved. At this time BUN is 7 and creatinine 0.87. DISCHARGE MEDICATIONS: 1. Celexa 40 mg one p.o. daily. 2. Neurontin 300 mg p.o. every 8 hours. 3. Movantik 25 mg p.o. daily p.r.n. for constipation. 4. Aleve 220 mg p.o. twice daily p.r.n. 5. Protonix 40 mg one p.o. every morning. 6. Altace 5 mg one p.o. at bedtime. 7. Potassium 10 mEq p.o. daily. 8. Transdermal Scop patch one patch every 72 hours for nausea. 9. Trazodone 50 mg one p.o. at bedtime. 10.Magic mouth wash 15 mL every 4 hours p.r.n. 11.Phenergan 25 mg, 12.5 mg p.o. every 6 hours p.r.n. for nausea. 12.Dilaudid 4 mg one p.o. every 4 hours p.r.n. for nausea. 13.Ativan 2 mg one p.o. every 8 hours p.r.n. for nausea and anxiety. 14.Fentanyl patch 25 mcg one patch topical every 72 hours. This patient is being discharged home in hemodynamically stable condition. He will follow up with Dr. Jeronimo Joseph in two to three days. This discharge took greater than 30 minutes. DICTATED BY: LEROY Kerns/ARIELA Tommy Dallas NP Discharge Summary [address] [address] NAME: CAMPOS PRUETT : 71 STATUS : DIS IN PAT#: [id number] AGE: 41 ADM/REG DATE : 03/07/17 MR#: [id number] REPORT SERV DATE: 03/14/17 DICTATED BY: TOMMY DALLAS DATE: 03/13/17 REPORT STATUS : Draft TRANSCRIBED BY: MODL DATE: 03/13/17 / [id number] CC: MD Jeronimo Kelly M.D.
--- NOTE | ~2017-03-07 | HP ---
History And Physical [address] [place]. [address] NAME: CAMPOS PRUETT : 71 STATUS : ADM Marcelo PAT#: [id number] AGE: 41 ADM/REG DATE : 03/07/17 MR#: [id number] REPORT SERV DATE: 03/08/17 DICTATED BY: RADAMES PANDEY DATE: 03/08/17 REPORT STATUS : Draft TRANSCRIBED BY: MODL DATE: 03/08/17 DATE OF ADMISSION: 03/07/2017 CHIEF COMPLAINT: A 41-year-old male with metastatic breast cancer now presenting with intractable nausea, vomiting, diarrhea, abdominal pain. HISTORY OF PRESENT ILLNESS: The patient's history was obtained through careful interview with the patient and , coupled with review of [facility] medical records. The patient was last hospitalized about 10 days ago, for almost the same symptoms. He was placed on IV narcotic pain management and supportive care, and seemed to have great improvement in his symptoms, was able to be discharged within about a day. He felt fairly well for about two days after discharged home, but then gradually over the last six to seven days now he has developed increasing nausea with intractable vomiting, significant diarrhea and increasing abdominal pain. He describes upper abdominal discomfort, a cramping quality, up to a 10/10 severity that becomes debilitating. Finally this evening he could take it no longer and felt he had to come to the hospital for further stabilization of his pain. He has had weight loss of just "a few pounds" over the last month or so. No shortness of breath. No cough. No chest pain. His last radiation treatment was about two and half weeks ago. REVIEW OF SYSTEMS: Otherwise, a 14-point review of systems was obtained and was negative. PAST MEDICAL HISTORY: 1. Breast cancer with metastases to the liver, bone, and brain, on Xeloda since 2014 with radiation history. He is seen by Dr. Jeronimo Joseph, and Dr. Garcia. 2. Neuropathy. 3. Hypertension. PAST SURGICAL HISTORY: 1. Right hip surgery. 2. Left mastectomy. 3. Appendectomy. ALLERGIES: NO KNOWN DRUG ALLERGIES. SOCIAL HISTORY: Quit smoking when he was 35 years old. Drinks occasional alcohol. Lives in [place], [place]. He is . Has a 14-year-old daughter and 19-year-old son. History And Physical [address] [place]. [address] NAME: CAMPOS PRUETT : 71 STATUS : ADM Marcelo PAT#: [id number] AGE: 41 ADM/REG DATE : 03/07/17 MR#: [id number] REPORT SERV DATE: 03/08/17 DICTATED BY: RADAMES PANDEY DATE: 03/08/17 REPORT STATUS : Draft TRANSCRIBED BY: ARIELA DATE: 03/08/17 FAMILY HISTORY: Grandmother with cancer. CURRENT MEDICATIONS: 1. Xeloda 2000 mg p.o. b.i.d. 2. Celexa 40 mg p.o. daily. 3. Neurontin 300 mg p.o. b.i.d. 4. MS Contin 60 mg p.o. b.i.d. 5. Morphine Immediate Release 30 mg p.o. q.6 hours p.r.n. 6. Movantik 25 mg as needed. 7. Aleve p.r.n. 8. Protonix 40 mg p.o. daily. 9. Phenergan p.r.n. 10.Altace 5 mg p.o. q.h.s. 11.Trazodone 50 mg p.o. daily. 12.Magic mouthwash. 13.Potassium. PHYSICAL EXAMINATION: VITAL SIGNS: Temperature 97.1, pulse 122, blood pressure 111/65, respiratory rate 22, and O2 saturation 98% on room air. GENERAL: A pleasant cooperative male, but in evidence of distress secondary to nausea, vomiting, and his abdominal pain. HEENT: Pupils equal, round, and reactive to light. No conjunctival pallor. No scleral icterus. Nares are patent. Oropharynx is clear of obstruction. Dry mucous membranes. NECK: Trachea midline. No thyromegaly. LYMPH: No cervical lymphadenopathy. No supraclavicular lymphadenopathy. RESPIRATORY: Clear to auscultation at bases. No wheezes, rales, or rhonchi. Normal respiratory effort. CARDIOVASCULAR: Tachycardic. Regular rhythm. No murmurs, rubs, or gallops. No extremity edema is appreciated. ABDOMEN: Significant epigastric abdominal discomfort with guarding, but no rebound. Nondistended. Active bowel sounds. No hepatosplenomegaly. DERMATOLOGICAL: Warm and dry extremities. No pallor. No cyanosis. PSYCHIATRIC: Normal affect. Good mood. Alert and oriented x3. LABORATORY DATA: White blood cell count 8.7, hemoglobin 13, hematocrit 37, and platelets 187. Sodium 139, potassium 4.0, chloride 107, bicarb 22, BUN 9, creatinine 1.0, glucose 122, and alkaline phosphatase 191. Urinalysis negative for infection. STUDIES: 1. CT scan of the abdomen and pelvis shows significant osseous and liver metastases. 2. EKG by my own evaluation shows sinus tachycardia. History And Physical [address] [address] NAME: CAMPOS PRUETT : 71 STATUS : ADM Marcelo PAT#: [id number] AGE: 41 ADM/REG DATE : 03/07/17 MR#: [id number] REPORT SERV DATE: 03/08/17 DICTATED BY: RADAMES PANDEY DATE: 03/08/17 REPORT STATUS : Draft TRANSCRIBED BY: MODL DATE: 03/08/17 ASSESSMENT AND PLAN: 1. Metastatic breast cancer. Consult Dr. Jeronimo Joseph, oncologist. 2. Intractable abdominal pain with vomiting. Place on a SURGICAL SPECIALIST Dilaudid. Negative CT scan of the abdomen and pelvis except for cancer changes. 3. Diarrhea. Check Clostridium difficile toxin. Try cholestyramine. KPL/MODL Radames Pandey M.D. / [id number] CC: Odayls Garcia M.D. John A Fortney, M.D.
[2017-03-07 23:38] LABS: ASCORBIC ACID (UR NOT ORDER) NEG (NEG); BILIRUBIN, URINE SMALL (NEG); ER URINALYSIS TAT 0 Hrs 00 Mins; KETONE, URINE NEGATIVE (NEG); LEUKOCYTE ESTERASE(NOT OR NEG (NEG); NITRITE (URINE) NEG (NEG); WBC (NOT ORDERED) (RFLEX) 3 (0-5)
[2017-03-07 23:39] LABS: BASOPHILS 0.1 %; BASOPHILS ABSOLUTE 0.01 10/3/uL (0.0-0.16); EOSINOPHILS 0.3 %; EOSINOPHILS ABSOLUTE 0.03 10/3/uL (0.0-0.53); HEMATOCRIT 37.2 % (40.0-51.0); HEMOGLOBIN 12.8 g/dL (13.6-17.8); IMMATURE GRANULOCYTES 0.2 %; IMMATURE GRANULOCYTES ABSOLUTE 0.02 10/3/uL (0.0-0.11); LYMPHOCYTES 10.1 %; LYMPHOCYTES ABSOLUTE 0.88 10/3/uL (0.67-4.30); MEAN CORPUS HGB CONC 34.4 g/dL (32.0-36.0); MEAN CORPUSCULAR HEMOGLOB 32.7 pg (26.0-34.0); MEAN PLATELET VOLUME 9.3 fL (9.2-13.0); MONOCYTES 9.2 %; NEUTROPHILS 80.1 %; NEUTROPHILS ABSOLUTE 6.97 10/3/uL (2.02-8.40); PLATELET COUNT 187 10/3/uL (150-400); RED CELL COUNT 3.91 10/6/uL (4.7-6.1)
[2017-03-07 23:40] LABS: MANUAL DIFF NO %; MEAN CORPUSCULAR VOLUME 95.1 fL (80-100); WHITE BLOOD CELLS 8.7 10/3/uL (4.5-10.5)
[~2017-03-07 23:50] MED LIST changes: +MOVANTIK25 MG PO; +PR25 PO; +TRAZ50 PO; +XELODA PO; +ZOFRAN8 PO; +[UNRECOGNIZED DRUG - OTHER] PO
[2017-03-07 23:54] LABS: A/G RATIO 0.8 (0.7-1.9); ALBUMIN 3.6 G/DL (3.5-5.0); ALKALINE PHOSPHATASE 191 U/L (45-117); CHLORIDE, SERUM 107 MMOL/L (96-112); CO2 (CARBON DIOXIDE) 22 MMOL/L (24-34); GFR AFRICAN AMERICAN 106 ML/MIN (>=60); GFR NON AFRICAN AMERICAN 92 ML/MIN (>=60); GLUCOSE, SERUM 122 MG/DL (60-99); SGOT(AST) 27 U/L (5-40); SGPT(ALT) 20 U/L (5-65); SODIUM, SERUM 139 MMOL/L (135-148); TOTAL BILIRUBIN 0.9 MG/DL (0-1.2)
[2017-03-08 00:04] LABS: BUN (BLOOD UREA NITROGEN) 9 MG/DL (6-23); CALCIUM, SERUM 9.3 MG/DL (8.5-10.4); GLOBULIN 4.5 G/DL (2.5-4.1); TOTAL PROTEIN 8.1 G/DL (6.0-8.5)
[2017-03-08 03:15] LABS: INTERNATIONAL NORMAL RATI 1.3 UNITS (-); PARTIAL THROMBO TIME 28.6 SEC (22.5-37.2); PROTIME (NOT ORD) 15.9 SEC (12.0-14.5)
[2017-03-08 03:22] LABS: CALCIUM, SERUM 8.7 MG/DL (8.5-10.4); TROPONIN I <0.02 NG/ML (<0.05)
[2017-03-08] MEDS ORDERED: POTASSIUM PO (04:04)
[2017-03-08] MEDS ORDERED: ALEVE220 MG PO (04:05)
[2017-03-08 12:47] LABS: BASOPHILS 0.2 %; BASOPHILS ABSOLUTE 0.01 10/3/uL (0.0-0.16); EOSINOPHILS 1.4 %; EOSINOPHILS ABSOLUTE 0.07 10/3/uL (0.0-0.53); HEMOGLOBIN 10.9 g/dL (13.6-17.8); IMMATURE GRANULOCYTES 0.2 %; IMMATURE GRANULOCYTES ABSOLUTE 0.01 10/3/uL (0.0-0.11); LYMPHOCYTES 13.4 %; LYMPHOCYTES ABSOLUTE 0.66 10/3/uL (0.67-4.30); MEAN CORPUS HGB CONC 33.2 g/dL (32.0-36.0); MEAN CORPUSCULAR HEMOGLOB 32.5 pg (26.0-34.0); MEAN CORPUSCULAR VOLUME 97.9 fL (80-100); MONOCYTES 15.7 %; MONOCYTES ABSOLUTE 0.77 10/3/uL (0.21-1.20); NEUTROPHILS 69.1 %; NEUTROPHILS ABSOLUTE 3.39 10/3/uL (2.02-8.40); PLATELET COUNT 151 10/3/uL (150-400); RBC DISTRIBUTION WIDTH 16.8 % (12.0-16.0); RED CELL COUNT 3.35 10/6/uL (4.7-6.1)
[2017-03-08 12:49] LABS: HEMATOCRIT 32.8 % (40.0-51.0); MANUAL DIFF NO %; WHITE BLOOD CELLS 4.9 10/3/uL (4.5-10.5)
[2017-03-08 13:04] LABS: A/G RATIO 0.8 (0.7-1.9); ALBUMIN 3.2 G/DL (3.5-5.0); BUN (BLOOD UREA NITROGEN) 10 MG/DL (6-23); CALCIUM, SERUM 8.1 MG/DL (8.5-10.4); CHLORIDE, SERUM 106 MMOL/L (96-112); CREATININE 0.88 MG/DL (0.70-1.30); GFR AFRICAN AMERICAN 122 ML/MIN (>=60); GFR NON AFRICAN AMERICAN 105 ML/MIN (>=60); GLOBULIN 3.9 G/DL (2.5-4.1); POTASSIUM, SERUM 3.8 MMOL/L (3.5-5.3); SGOT(AST) 21 U/L (5-40); SGPT(ALT) 18 U/L (5-65); SODIUM, SERUM 139 MMOL/L (135-148); TOTAL BILIRUBIN 0.9 MG/DL (0-1.2); TOTAL PROTEIN 7.1 G/DL (6.0-8.5)
[2017-03-08 13:05] LABS: ALKALINE PHOSPHATASE 164 U/L (45-117); CO2 (CARBON DIOXIDE) 27 MMOL/L (24-34); GLUCOSE, SERUM 94 MG/DL (60-99)
[2017-03-09 06:22] LABS: BASOPHILS 0.2 %; BASOPHILS ABSOLUTE 0.01 10/3/uL (0.0-0.16); EOSINOPHILS 3.4 %; EOSINOPHILS ABSOLUTE 0.16 10/3/uL (0.0-0.53); HEMATOCRIT 30.6 % (40.0-51.0); HEMOGLOBIN 10.2 g/dL (13.6-17.8); IMMATURE GRANULOCYTES 0.2 %; IMMATURE GRANULOCYTES ABSOLUTE 0.01 10/3/uL (0.0-0.11); LYMPHOCYTES 16.8 %; LYMPHOCYTES ABSOLUTE 0.79 10/3/uL (0.67-4.30); MEAN CORPUS HGB CONC 33.3 g/dL (32.0-36.0); MEAN CORPUSCULAR HEMOGLOB 32.2 pg (26.0-34.0); MEAN CORPUSCULAR VOLUME 96.5 fL (80-100); MEAN PLATELET VOLUME 9.4 fL (9.2-13.0); MONOCYTES 12.6 %; MONOCYTES ABSOLUTE 0.59 10/3/uL (0.21-1.20); NEUTROPHILS 66.8 %; NEUTROPHILS ABSOLUTE 3.14 10/3/uL (2.02-8.40); PLATELET COUNT 148 10/3/uL (150-400); RBC DISTRIBUTION WIDTH 16.1 % (12.0-16.0); RED CELL COUNT 3.17 10/6/uL (4.7-6.1); WHITE BLOOD CELLS 4.7 10/3/uL (4.5-10.5)
[2017-03-09 06:23] LABS: MANUAL DIFF NO %
[2017-03-09 06:35] LABS: BUN (BLOOD UREA NITROGEN) 9 MG/DL (6-23); CALCIUM, SERUM 7.9 MG/DL (8.5-10.4); CHLORIDE, SERUM 104 MMOL/L (96-112); CO2 (CARBON DIOXIDE) 26 MMOL/L (24-34); CREATININE 1.31 MG/DL (0.70-1.30); GFR AFRICAN AMERICAN 77 ML/MIN (>=60); GFR NON AFRICAN AMERICAN 66 ML/MIN (>=60); GLUCOSE, SERUM 101 MG/DL (60-99); POTASSIUM, SERUM 3.9 MMOL/L (3.5-5.3)
[2017-03-09 06:36] LABS: SODIUM, SERUM 132 MMOL/L (135-148)
[2017-03-10 04:57] LABS: BASOPHILS 0.2 %; BASOPHILS ABSOLUTE 0.01 10/3/uL (0.0-0.16); EOSINOPHILS 1.8 %; EOSINOPHILS ABSOLUTE 0.11 10/3/uL (0.0-0.53); HEMOGLOBIN 9.1 g/dL (13.6-17.8); IMMATURE GRANULOCYTES 0.2 %; IMMATURE GRANULOCYTES ABSOLUTE 0.01 10/3/uL (0.0-0.11); LYMPHOCYTES 7.5 %; LYMPHOCYTES ABSOLUTE 0.45 10/3/uL (0.67-4.30); MEAN CORPUS HGB CONC 33.5 g/dL (32.0-36.0); MEAN CORPUSCULAR HEMOGLOB 32.2 pg (26.0-34.0); MEAN CORPUSCULAR VOLUME 96.1 fL (80-100); MEAN PLATELET VOLUME 9.1 fL (9.2-13.0); MONOCYTES 6.4 %; MONOCYTES ABSOLUTE 0.38 10/3/uL (0.21-1.20); NEUTROPHILS 83.9 %; NEUTROPHILS ABSOLUTE 5.02 10/3/uL (2.02-8.40); PLATELET COUNT 134 10/3/uL (150-400); RBC DISTRIBUTION WIDTH 16.2 % (12.0-16.0); RED CELL COUNT 2.83 10/6/uL (4.7-6.1)
[2017-03-10 05:02] LABS: HEMATOCRIT 27.2 % (40.0-51.0); MANUAL DIFF NO %
[2017-03-10 05:10] LABS: BUN (BLOOD UREA NITROGEN) 9 MG/DL (6-23); CALCIUM, SERUM 7.7 MG/DL (8.5-10.4); CHLORIDE, SERUM 102 MMOL/L (96-112); CO2 (CARBON DIOXIDE) 24 MMOL/L (24-34); CREATININE 0.94 MG/DL (0.70-1.30); GFR AFRICAN AMERICAN 115 ML/MIN (>=60); GFR NON AFRICAN AMERICAN 99 ML/MIN (>=60); GLUCOSE, SERUM 98 MG/DL (60-99); PHOSPHORUS, SERUM 2.3 MG/DL (2.5-4.5); POTASSIUM, SERUM 4.1 MMOL/L (3.5-5.3); SODIUM, SERUM 135 MMOL/L (135-148)
[2017-03-11 06:44] LABS: BASOPHILS 0.3 %; BASOPHILS ABSOLUTE 0.01 10/3/uL (0.0-0.16); EOSINOPHILS ABSOLUTE 0.14 10/3/uL (0.0-0.53); HEMATOCRIT 26.6 % (40.0-51.0); HEMOGLOBIN 8.9 g/dL (13.6-17.8); IMMATURE GRANULOCYTES 0.3 %; IMMATURE GRANULOCYTES ABSOLUTE 0.01 10/3/uL (0.0-0.11); LYMPHOCYTES 10.6 %; LYMPHOCYTES ABSOLUTE 0.37 10/3/uL (0.67-4.30); MEAN CORPUS HGB CONC 33.5 g/dL (32.0-36.0); MEAN CORPUSCULAR HEMOGLOB 32.1 pg (26.0-34.0); MONOCYTES 12.3 %; MONOCYTES ABSOLUTE 0.43 10/3/uL (0.21-1.20); NEUTROPHILS 72.5 %; NEUTROPHILS ABSOLUTE 2.54 10/3/uL (2.02-8.40); PLATELET COUNT 121 10/3/uL (150-400); RBC DISTRIBUTION WIDTH 16.6 % (12.0-16.0); RED CELL COUNT 2.77 10/6/uL (4.7-6.1)
[2017-03-11 06:52] LABS: MANUAL DIFF NO %; WHITE BLOOD CELLS 3.5 10/3/uL (4.5-10.5)
[2017-03-11 06:54] LABS: BUN (BLOOD UREA NITROGEN) 7 MG/DL (6-23); CALCIUM, SERUM 8.1 MG/DL (8.5-10.4); CHLORIDE, SERUM 108 MMOL/L (96-112); CO2 (CARBON DIOXIDE) 27 MMOL/L (24-34); CREATININE 0.87 MG/DL (0.70-1.30); GFR AFRICAN AMERICAN 123 ML/MIN (>=60); GFR NON AFRICAN AMERICAN 106 ML/MIN (>=60); GLUCOSE, SERUM 80 MG/DL (60-99); POTASSIUM, SERUM 4.2 MMOL/L (3.5-5.3); SODIUM, SERUM 141 MMOL/L (135-148)
[2017-03-13] MEDS ORDERED: DURA50 TOP (11:03)
[2017-03-13] MEDS ORDERED: TRANSSCOP TOP (11:07)
[2017-03-13] MEDS ORDERED: K-TABS10 MEQ PO (11:07)
[2017-03-13] MEDS ORDERED: DIL4TAB PO (11:09)
[2017-03-13] MEDS ORDERED: ATIVAN2 MG PO (11:10)
== END 2017-03-13 16:45 | disposition home or self-care (01) | DRG 948 ==
LOC: ER 23:50 → ER/OF 23:59 → 4EA 03-08 06:07
PROVIDERS: Hospitalist; Internal Medicine; Nurse Practitioner Adult Health; Nurse Practitioner Family
DX: G89.3 Neoplasm related pain (acute) (chronic) (principal); N17.9 Acute kidney failure, unspecified; C50.929 Malignant neoplasm of unspecified site of unspecified male breast
CPT/HCPCS: 70553; 71010; 71260; 74177; 77290; 80048; 80053; 81001; 82150; 82310; 83605; 83690; 83735; 84100; 84484; 85025; 85610; 85730; 87040; 87493; 87493-59; 93005; 94640; 96374; 96375; 96376; 99285; A9270-GY; A9577; G0463; J1170; J2405; J2550; Q9967

== ENCOUNTER 2017-03-23 15:44 | Inpatient (IN) | payer OTHER ==
--- NOTE | ~2017-03-23 | DS ---
Discharge Summary [facility] [address] [place]. [address] NAME: CAMPOS PRUETT : 71 STATUS : ADM IN [facility]#: [id number] AGE: 41 ADM/REG DATE : 03/23/17 MR#: [id number] REPORT SERV DATE: 03/26/17 DICTATED BY: TOMMY DALLAS DATE: 03/26/17 REPORT STATUS : Draft TRANSCRIBED BY: MODL DATE: 03/26/17 ADMISSION DATE: 03/23/2017 DISCHARGE DATE: DISCHARGE DIAGNOSIS: 1. Recurrent nausea, vomiting due to decreased motility, improving. 2. Metastatic breast cancer, followed by Dr. Jeronimo Joseph. 3. Chronic pain due to #2, controlled. 4. Hypertension, stable. 5. Peripheral neuropathy, stable. CONSULTATIONS: 1. Oncology, Dr. Jeronimo Joseph. 2. GI, Dr. Roberts. IMAGIN. Gallbladder ultrasound, 03/24/2017, impression, fatty liver with multiple defects in the liver. Please note that probably represent metastatic disease. Pancreas normal. Aorta and vena cava normal. 2. Upper GI on 03/24/2017, impression, there appears to be a small sliding hiatal hernia without gastroesophageal reflux witnessed. Otherwise, normal appearance of the esophagus, stomach, and duodenum, unremarkable appearance of the small bowel, small bowel transit time of 45 minutes. 3. Upper GI on 03/24/2017, Dr. Roberts, impression, normal exam, normal stomach biopsied, normal exam of duodenum, biopsy. COURSE OF HOSPITAL STAY: Please refer to history and physical dictated by Dr. Garcia on 03/23/2017 for complete admission details as well as consultation notes. This patient is a 41-year-old male, who presented with complaints of ongoing nausea and vomiting. The patient stated prior to admission, he had had recurrence of nausea and vomiting, uncontrolled at home. The patient was evaluated by Dr. Jeronimo Joseph, [facility] prior to admission. Per his recommendation, the patient was a direct admission for evaluation and testing. Imaging was obtained as well as GI consult. The patient did undergo an upper GI which was noted normal, biopsies were obtained during procedure, the patient was started on azithromycin as well as Reglan. Initially, the patient was started on a clear liquid diet. This was advanced to GI soft. He has been able to tolerate it without difficulty. The patient is taking Zofran scheduled prior to meals and at bedtime. Further evaluation was felt that the recurrent nausea and vomiting was due to decreased motility. The patient was followed by Dr. Jeronimo Joseph during his hospital stay. Oncology plan of care per Dr. Joseph. The patient's chronic pain has improved, no longer taking Dilaudid at this time. Hypertension has been stable as well as peripheral neuropathy. DISCHARGE MEDICATIONS: 1. Zithromax 250 mg one p.o. daily. 2. Celexa 40 mg one p.o. daily. Discharge Summary [facility] [address] [facility] [place]. [address] NAME: CAMPOS PRUETT : 71 STATUS : ADM IN [facility]#: [id number] AGE: 41 ADM/REG DATE : 03/23/17 MR#: [id number] REPORT SERV DATE: 03/26/17 DICTATED BY: TOMMY DALLAS DATE: 03/26/17 REPORT STATUS : Draft TRANSCRIBED BY: ARIELA DATE: 03/26/17 3. Duragesic 50 mcg patch, one patch topical every 72 hours. 4. Neurontin 300 mg one p.o. every eight hours. 5. Reglan 5 mg one p.o. every eight hours. 6. Protonix 40 mg one p.o. every morning. 7. Altace 5 mg one p.o. at bedtime. 8. Trazodone 50 mg one p.o. at bedtime. 9. Magic mouthwash 15 mL every four hours p.r.n. 10.Movantik 25 mg one p.o. daily p.r.n. for constipation. 11.Phenergan 25 mg, 12.5 mg p.o. every six hours p.r.n.. 12.Aleve 220 mg one p.o. twice daily. 13.Potassium 10 mEq one p.o. daily. 14.Dilaudid 4 mg one p.o. every four hours p.r.n. for pain. 15.Ativan 2 mg one p.o. every 6 hours p.r.n. for nausea and vomiting. 16.ABHD cream one dose topical every six hours p.r.n. 17.Questran Light pack 4 g p.o. every six hours. This patient is being discharged home in hemodynamically stable condition. We will follow up with Dr. Jeronimo Joseph on 03/28/2017 for next chemotherapy. The patient did agree with the treatment plan. This discharge took greater than 30 minutes. DICTATED BY: Tommy Dallas NP MRSaud/MODL Tommy Dallas NP / [id number] CC: Ludin Garcia M.D.
--- NOTE | ~2017-03-23 | EGD ---
EGD REPORT [facility] [address] [place] [address] NAME: JAMIR VALDIVIA : 71 STATUS : ADM IN PAT#: [id number] AGE: 41 ADM/REG DATE : 03/23/17 MR#: [id number] REPORT SERV DATE: 03/24/17 DICTATED BY: ANTHONY العراقي DATE: 03/24/17 REPORT STATUS : Draft TRANSCRIBED BY: [facility] DATE: 03/24/17 Endoscopy Center Patient Name: Jamir Valdivia Date of : 1975 Attending MD: ANTHONY العراقي MD Procedure Date No Time: 03/24/2017 Procedure: Upper GI endoscopy Indications: Persistent vomiting of unknown cause Medicines: Monitored Anesthesia Care Complications: No immediate complications. Estimated blood loss: Minimal. Procedure: After obtaining informed consent, the endoscope was passed under direct vision. Throughout the procedure, the patient's blood pressure, pulse, and oxygen saturations were monitored continuously. The GIF [id number] was introduced through the mouth, and advanced to the second part of duodenum. The upper GI endoscopy was accomplished without difficulty. The patient tolerated the procedure well. Findings: The examined esophagus was normal. The entire examined stomach was normal. Biopsies were taken with a cold forceps for Helicobacter pylori testing. Estimated blood loss was minimal. The examined duodenum was normal. Biopsies were taken with a cold forceps for evaluation of celiac disease. Estimated blood loss was minimal. The cardia and gastric fundus were normal on retroflexion. Impression: - Normal examination. - Normal stomach. Biopsied. - Normal examined duodenum. Biopsied. Recommendation: - Return patient to [facility] for ongoing care. - Await pathology results. - Use a proton pump inhibitor IV daily. - Movantik / Relistor daily - Symptomatic care with antiemetics as needed Procedure Code(s): --- Professional --- 35667, Esophagogastroduodenoscopy, flexible, transoral; with biopsy, single or multiple Diagnosis Code(s): --- Professional --- EGD REPORT [place] [address] [address] NAME: JAMIR VALDIVIA : 71 STATUS : ADM IN [facility]#: [id number] AGE: 41 ADM/REG DATE : 03/23/17 MR#: [id number] REPORT SERV DATE: 03/24/17 DICTATED BY: ANTHONY العراقي DATE: 03/24/17 REPORT STATUS : Draft TRANSCRIBED BY: [facility] DATE: 03/24/17 R11.10, Vomiting, unspecified CPT copyright 2013 [employer]. All rights reserved. The codes documented in this report are preliminary and upon label coder review may be revised to meet current compliance requirements. Anthony العراقي MD ANTHONY العراقي MD 03/24/2017 10:35 AM This report has been signed electronically. Number of Addenda: 0 Note Initiated On: 03/24/2017 9:36 AM [facility] [address] [address]
--- NOTE | ~2017-03-23 | HP ---
History And Physical [place] [id number] [facility] [place]. [address] NAME: CAMPOS PRUETT : [birth year] STATUS : ADM IN [facility]#: [id number] AGE: 41 ADM/REG DATE : 03/23/17 MR#: [id number] REPORT SERV DATE: 03/23/17 DICTATED BY: LUDIN GARCIA DATE: 03/23/17 REPORT STATUS : Draft TRANSCRIBED BY: MODL DATE: 03/23/17 DATE OF ADMISSION: 03/23/2017 CHIEF COMPLAINT: Nausea, vomiting. BRIEF HISTORY OF PRESENT ILLNESS: The patient is a 41-year-old white male, who has had repeated recurrent admissions to the hospital for nausea and vomiting. In the last four to six weeks, he has been admitted almost three times. This patient reports that he was here two weeks ago and left here feeling well, but then within two days after that he had recurrence of his nausea and vomiting. He has not been able to take in anything. He feels hungry, but he is not able to keep anything down. He has had some diarrhea. He denies any blood in the vomitus. He denies any blood in the stool. He denies any fevers or chills. He has had occasional chest pain and some abdominal pain that he attributes to more vomiting. He has not had any shortness of breath. No fever, chills, or any other constitutional symptoms. He had been seen by Dr. Jeronimo Joseph two days in a row where IV fluids were given and IV antiemetics were given. Topical antiemetics were written as well. However, this patient failed to improve and so he was referred as a direct admission for further treatment and evaluation. REVIEW OF SYSTEMS: A 10-point review of systems is otherwise negative. PAST MEDICAL HISTORY: Significant for breast cancer with metastases to the liver, bone, and brain on Xeloda since 2013 with radiation history. He is seen by Dr. Jeronimo Joseph and Dr. Garcia. He has peripheral neuropathy. He has hypertension. PAST SURGICAL HISTORY: Significant for right hip surgery, left mastectomy with axillary node dissection and appendectomy. ALLERGIES: NO KNOWN DRUG ALLERGIES. HOME MEDICATIONS: Celexa 40 mg p.o. every morning, fentanyl patch 50 mcg transdermal every 72 hours, gabapentin 300 mg every eight hours, Dilaudid 4 mg every four hours as needed, Ativan 2 mg every six hours as needed, dexamethasone 4 mg once daily, ABHD compound cream six to eight hours for nausea and vomiting, Movantik 25 mg p.o. daily for constipation, Aleve 200 mg twice daily, Protonix 40 mg p.o. every morning, potassium 10 mEq, Phenergan 12.5 mg every six hours as needed, ramipril 5 mg once at bedtime, trazodone 50 mg once at bedtime, magic mouthwash, and Questran 4 g packet as needed. SOCIAL HISTORY: He quit smoking when he was 35 years old. Drinks alcohol occasionally. Lives in [place], [place]. He is . He has a 14-year-old daughter and a 19-year old son who are healthy. FAMILY HISTORY: Grandmother with cancer. PHYSICAL EXAMINATION: History And Physical [address] [address] NAME: CAMPOS PRUETT : [birth year] STATUS : ADM IN [facility]#: [id number] AGE: 41 ADM/REG DATE : 03/23/17 MR#: [id number] REPORT SERV DATE: 03/23/17 DICTATED BY: LUDIN GARCIA DATE: 03/23/17 REPORT STATUS : Draft TRANSCRIBED BY: ARIELA DATE: 03/23/17 GENERAL: White male, lying on the bed, appears to be in no obvious respiratory distress. He is awake and alert. He is oriented. VITAL SIGNS: Will be reviewed when available from nursing staff. HEENT: Head is normocephalic, atraumatic. Pupils are equal, round, and reactive to light. Extraocular muscles are intact. Sclerae anicteric. Conjunctivae normal. Oropharynx without lesion. Tongue protrusion midline. Uvula midline. NECK: Supple. No jugular venous distention. No carotid bruits or thyromegaly is appreciated. No lymphadenopathy in the neck is palpable. HEART: Regular rate rhythm. No murmurs, rubs, or gallops are heard. LUNGS: Clear to auscultation both anteriorly and posteriorly without rales, rhonchi, wheezing, or consolidation. ABDOMEN: Generally soft, but diffuse tenderness, worse in the right upper quadrant. No rebound or guarding. No organomegaly. EXTREMITIES: Without cyanosis, clubbing, or edema. NEUROLOGICAL: Seems to be grossly intact. LABORATORY DATA: All labs are pending at this time. IMPRESSION: 1. Nausea vomiting that is recurrent. Possibilities include cholecystitis acute on chronic or chronic as well as opiate-induced gastroparesis. 2. Metastatic breast cancer. 3. Hypertension. 4. Peripheral neuropathy. RECOMMENDATIONS: The patient will be admitted. GI consultation will be obtained. Gallbladder ultrasound will be obtained. Routine labs will be ordered and done. I will review home medications when available from Pharmacy. IV azithromycin 500 mg x1 as a prokinetic agent will be used. The patient remains a full code. SV/MODL Ludin Garcia M.D. / [id number] CC: Odalys Garcia M.D.
--- NOTE | ~2017-03-23 | CN ---
Consultation Report [facility] [address] [place]. [address] NAME: CAMPOS VALDIVIA : 71 STATUS : ADM IN PAT#: [id number] AGE: 41 ADM/REG DATE : 03/23/17 MR#: [id number] REPORT SERV DATE: 03/24/17 DICTATED BY: ANTHONY العراقي DATE: 03/24/17 REPORT STATUS : Draft TRANSCRIBED BY: MODL DATE: 03/24/17 INPATIENT CONSULT NOTE DATE OF CONSULTATION: 03/24/2017 REASON FOR CONSULTATION: Persistent nausea and vomiting. HISTORY OF PRESENT ILLNESS: Mr. Valdivia is a very pleasant, 41-year-old male, with a past medical history significant only for widely metastatic breast cancer, who has been having problems with repeated admissions to the hospital for nausea and vomiting. The patient states that he has had significant difficulty over the last month with keeping any food down. No abdominal pain per se. The patient will eat and is able to usually finish a meal prior to the onset of nausea, usually about 15-20 minutes after starting eating. Again, the patient does not have any significant pain with this, but will usually vomit up most foods and p.o. intake. The patient takes narcotic pain medications for pain control at home and has had an issue with constipation previously, but none recently. No blood in his stools. No dark black tarry stools, but the patient states that he does have intermittent times when his stools are darker than normal. No blood in his emesis and no coffee-grounds emesis. The patient has had laboratory evaluation which has been unremarkable as well as imaging with CT that has been unremarkable as well aside from findings of metastatic disease primarily to his ribs and bone, however, with also multiple metastatic spots in his liver. Imaging has showed no suggestion of bowel obstruction. REVIEW OF SYSTEMS: All systems reviewed and were negative aside from what was mentioned in the history of present illness. PAST MEDICAL HISTORY: 1. Breast cancer with numerous metastases to liver, bone, brain, and lungs, on Xeloda therapy since 2013 with radiation. 2. Peripheral neuropathy. 3. Hypertension. 4. History of left mastectomy with axillary node dissection, appendectomy. FAMILY HISTORY: The patient states no significant GI malignancies that he is aware of. SOCIAL HISTORY: The patient quit smoking approximately six years ago. He does drink alcohol occasionally. No illicit substance use. ALLERGIES: THE PATIENT HAS NO KNOWN DRUG ALLERGIES. OUTPATIENT MEDICATIONS: 1. Trazodone. 2. Protonix. Consultation Report [address] [place]. [address] NAME: CAMPOS VALDIVIA : 71 STATUS : ADM IN PAT#: [id number] AGE: 41 ADM/REG DATE : 03/23/17 MR#: [id number] REPORT SERV DATE: 03/24/17 DICTATED BY: ANTHONY العراقي DATE: 03/24/17 REPORT STATUS : Draft TRANSCRIBED BY: ARIELA DATE: 03/24/17 3. Celexa. 4. Ramipril. 5. Movantik. 6. Neurontin. 7. Phenergan. 8. Aleve b.i.d. 9. Fentanyl patch. 10.Potassium chloride. 11.Dilaudid tablets. 12.Ativan. 13.Dexamethasone. 14.Cholestyramine. 15.Magic mouthwash p.r.n. PHYSICAL EXAMINATION: VITAL SIGNS: Most recent vital signs include a temperature of 98.4 with a T-max of 99.0, pulse rate of 79, blood pressure 118/74, saturating 96% on 2 L nasal cannula oxygen. GENERAL: Inspection reveals a middle-aged male, lying in bed, in no apparent distress. HEENT: Head is normocephalic, atraumatic with normal inspection of the oral mucosa with moist mucous membranes. No thrush is evident. Sclerae are nonicteric. Pupils are equal and round. NECK: Supple without lymphadenopathy. HEART: Rate is regular with normal S1, S2. LUNGS: Sounds are clear to auscultation bilaterally without wheezes, rales, or rhonchi. ABDOMEN: Soft, nontender, nondistended with normoactive bowel sounds. The patient had no masses that were palpated. No cyanosis, clubbing, or edema. No jaundice or rash. No gross motor deficits. He was alert and oriented. Mood and affect are appropriate. Judgment appeared to be intact. LABORATORY DATA: Most recent laboratory results showed a CBC with a white count of 6.2, hemoglobin 11.6, and a platelet count of 176,000. Comprehensive metabolic panel showed normal electrolytes and normal renal function as well as LFTs that were not substantially abnormal. Total bilirubin was 0.5. Alkaline phosphatase mildly elevated at 151. ALT normal at 26 and AST mildly elevated at 42. TSH was normal at 0.36. As mentioned before, the patient had a CT scan several weeks ago that showed no significant abnormalities in his abdomen aside from the liver metastases. The patient just underwent an ultrasound of the gallbladder this morning that showed normal pancreas and fatty liver with multiple defects representing metastatic deposits. No other significant abnormalities. ASSESSMENT AND PLAN: Mr. Valdivia is a pleasant 41-year-old male, who unfortunately has widely metastatic breast cancer, who has been on treatment for some time and is now having problems with nausea, vomiting, and inability to tolerate p.o. intake. Given his history of Aleve use, there is certainly the possibility of peptic ulcer disease additionally with his history of metastatic breast cancer. There is always the possibility for partial Consultation Report [address] [place]. [address] NAME: CAMPOS VALDIVIA : 71 STATUS : ADM IN [facility]#: [id number] AGE: 41 ADM/REG DATE : 03/23/17 MR#: [id number] REPORT SERV DATE: 03/24/17 DICTATED BY: ANTHONY العراقي DATE: 03/24/17 REPORT STATUS : Draft TRANSCRIBED BY: ARIELA DATE: 03/24/17 obstruction somewhere along his GI tract either from metastatic deposits or adenopathy. We would recommend performing EGD first for assessment, and if that is negative, followed by an upper GI series of small-bowel follow-through. We would continue to treat his symptoms symptomatically with a PPI, antiemetic medications, and potentially a trial of a promotility agent if the upper GI series and small-bowel follow-through is unrevealing. Thank you very much for allowing us to participate in Mr. Valdivia's care. Please call with any questions or concerns you may have. [facility] [place]/MODL Anthony العراقي MD / [id number] CC: Ludin Garcia M.D.
[~2017-03-23 15:44] MED LIST changes: +ATIVAN2 MG PO; +DIL4TAB PO; +DURA50 TOP; +K-TABS10 MEQ PO; +TRANSSCOP TOP
[2017-03-23] MEDS ORDERED: [UNRECOGNIZED DRUG - OTHER] TOP (16:34)
[2017-03-23] MEDS ORDERED: DEX4 PO (16:38)
[2017-03-23] MEDS ORDERED: QUESLITE PO (16:40)
[2017-03-23 18:25] LABS: BASOPHILS 0 %; EOSINOPHILS 0 %; IMMATURE GRANULOCYTES 0.2 %; IMMATURE GRANULOCYTES ABSOLUTE 0.01 10/3/uL (0.0-0.11); LYMPHOCYTES ABSOLUTE 0.25 10/3/uL (0.67-4.30); MEAN CORPUS HGB CONC 32.4 g/dL (32.0-36.0); MEAN CORPUSCULAR HEMOGLOB 30.9 pg (26.0-34.0); MEAN CORPUSCULAR VOLUME 95.5 fL (80-100); MEAN PLATELET VOLUME 9.7 fL (9.2-13.0); MONOCYTES 4.7 %; MONOCYTES ABSOLUTE 0.29 10/3/uL (0.21-1.20); NEUTROPHILS 91.1 %; NEUTROPHILS ABSOLUTE 5.63 10/3/uL (2.02-8.40); RBC DISTRIBUTION WIDTH 15.8 % (12.0-16.0)
[2017-03-23 18:29] LABS: HEMATOCRIT 35.8 % (40.0-51.0); HEMOGLOBIN 11.6 g/dL (13.6-17.8); MANUAL DIFF NO %; PLATELET COUNT 176 10/3/uL (150-400); RED CELL COUNT 3.75 10/6/uL (4.7-6.1); WHITE BLOOD CELLS 6.2 10/3/uL (4.5-10.5)
[2017-03-23 18:30] LABS: INTERNATIONAL NORMAL RATI 1.1 UNITS (-); PROTIME (NOT ORD) 14.4 SEC (12.0-14.5)
[2017-03-23 18:31] LABS: PARTIAL THROMBO TIME 25.2 SEC (22.5-37.2)
[2017-03-23 19:06] LABS: A/G RATIO 0.8 (0.7-1.9); ALBUMIN 3.6 G/DL (3.5-5.0); CALCIUM, SERUM 8.4 MG/DL (8.5-10.4); CHLORIDE, SERUM 105 MMOL/L (96-112); CO2 (CARBON DIOXIDE) 27 MMOL/L (24-34); CREATININE 0.97 MG/DL (0.70-1.30); GFR AFRICAN AMERICAN 110 ML/MIN (>=60); GFR NON AFRICAN AMERICAN 95 ML/MIN (>=60); GLOBULIN 4.3 G/DL (2.5-4.1); PHOSPHORUS, SERUM 2.6 MG/DL (2.5-4.5); POTASSIUM, SERUM 3.9 MMOL/L (3.5-5.3); SGOT(AST) 42 U/L (5-40); SGPT(ALT) 26 U/L (5-65); SODIUM, SERUM 140 MMOL/L (135-148); TOTAL BILIRUBIN 0.5 MG/DL (0-1.2); TOTAL PROTEIN 7.9 G/DL (6.0-8.5)
[2017-03-23 19:09] LABS: ALKALINE PHOSPHATASE 151 U/L (45-117); BUN (BLOOD UREA NITROGEN) 11 MG/DL (6-23); GLUCOSE, SERUM 102 MG/DL (60-99); ULTRASENSITIVE TSH 0.361 MCIU/ML (0.358-3.740)
[2017-03-24 05:21] LABS: ALBUMIN 2.9 G/DL (3.5-5.0); BUN (BLOOD UREA NITROGEN) 9 MG/DL (6-23); CALCIUM, SERUM 8.1 MG/DL (8.5-10.4); CHLORIDE, SERUM 109 MMOL/L (96-112); CO2 (CARBON DIOXIDE) 26 MMOL/L (24-34); CREATININE 0.83 MG/DL (0.70-1.30); GFR AFRICAN AMERICAN 125 ML/MIN (>=60); GFR NON AFRICAN AMERICAN 108 ML/MIN (>=60); GLUCOSE, SERUM 95 MG/DL (60-99); PHOSPHORUS, SERUM 2.6 MG/DL (2.5-4.5); POTASSIUM, SERUM 3.9 MMOL/L (3.5-5.3); SODIUM, SERUM 141 MMOL/L (135-148)
[2017-03-25 06:12] LABS: BASOPHILS 0 %; EOSINOPHILS 0.7 %; EOSINOPHILS ABSOLUTE 0.02 10/3/uL (0.0-0.53); IMMATURE GRANULOCYTES 0.7 %; IMMATURE GRANULOCYTES ABSOLUTE 0.02 10/3/uL (0.0-0.11); LYMPHOCYTES 14.3 %; LYMPHOCYTES ABSOLUTE 0.44 10/3/uL (0.67-4.30); MEAN CORPUS HGB CONC 32.6 g/dL (32.0-36.0); MEAN CORPUSCULAR HEMOGLOB 31.5 pg (26.0-34.0); MEAN CORPUSCULAR VOLUME 96.8 fL (80-100); MEAN PLATELET VOLUME 9.7 fL (9.2-13.0); MONOCYTES 12.7 %; MONOCYTES ABSOLUTE 0.39 10/3/uL (0.21-1.20); NEUTROPHILS 71.6 %; PLATELET COUNT 146 10/3/uL (150-400); RBC DISTRIBUTION WIDTH 15.9 % (12.0-16.0); RED CELL COUNT 3.17 10/6/uL (4.7-6.1)
[2017-03-25 06:14] LABS: HEMATOCRIT 30.7 % (40.0-51.0); MANUAL DIFF NO %; WHITE BLOOD CELLS 3.1 10/3/uL (4.5-10.5)
[2017-03-25 06:22] LABS: BUN (BLOOD UREA NITROGEN) 6 MG/DL (6-23); CHLORIDE, SERUM 108 MMOL/L (96-112); CO2 (CARBON DIOXIDE) 26 MMOL/L (24-34); CREATININE 1.02 MG/DL (0.70-1.30); GFR AFRICAN AMERICAN 104 ML/MIN (>=60); GFR NON AFRICAN AMERICAN 90 ML/MIN (>=60); GLUCOSE, SERUM 91 MG/DL (60-99); POTASSIUM, SERUM 3.9 MMOL/L (3.5-5.3); SODIUM, SERUM 142 MMOL/L (135-148)
[2017-03-26 05:46] LABS: BASOPHILS 0.3 %; BASOPHILS ABSOLUTE 0.01 10/3/uL (0.0-0.16); EOSINOPHILS 1.5 %; EOSINOPHILS ABSOLUTE 0.05 10/3/uL (0.0-0.53); HEMATOCRIT 31.8 % (40.0-51.0); HEMOGLOBIN 10.3 g/dL (13.6-17.8); IMMATURE GRANULOCYTES 0.6 %; IMMATURE GRANULOCYTES ABSOLUTE 0.02 10/3/uL (0.0-0.11); LYMPHOCYTES 13.4 %; LYMPHOCYTES ABSOLUTE 0.44 10/3/uL (0.67-4.30); MANUAL DIFF NO %; MEAN CORPUS HGB CONC 32.4 g/dL (32.0-36.0); MEAN CORPUSCULAR HEMOGLOB 30.9 pg (26.0-34.0); MEAN CORPUSCULAR VOLUME 95.5 fL (80-100); MEAN PLATELET VOLUME 9.8 fL (9.2-13.0); MONOCYTES ABSOLUTE 0.36 10/3/uL (0.21-1.20); NEUTROPHILS 73.2 %; PLATELET COUNT 143 10/3/uL (150-400); RBC DISTRIBUTION WIDTH 15.4 % (12.0-16.0); RED CELL COUNT 3.33 10/6/uL (4.7-6.1); WHITE BLOOD CELLS 3.3 10/3/uL (4.5-10.5)
[2017-03-26 05:53] LABS: ALBUMIN 2.8 G/DL (3.5-5.0); BUN (BLOOD UREA NITROGEN) 5 MG/DL (6-23); CALCIUM, SERUM 8.6 MG/DL (8.5-10.4); CHLORIDE, SERUM 110 MMOL/L (96-112); CO2 (CARBON DIOXIDE) 27 MMOL/L (24-34); CREATININE 0.93 MG/DL (0.70-1.30); GFR AFRICAN AMERICAN 116 ML/MIN (>=60); GFR NON AFRICAN AMERICAN 100 ML/MIN (>=60); GLUCOSE, SERUM 95 MG/DL (60-99); PHOSPHORUS, SERUM 3.2 MG/DL (2.5-4.5); POTASSIUM, SERUM 3.9 MMOL/L (3.5-5.3); SODIUM, SERUM 142 MMOL/L (135-148)
[2017-03-26] MEDS ORDERED: REG5 PO (10:54)
[2017-03-26] MEDS ORDERED: ZOFRANODT8 PO (10:57)
[2017-03-26] MEDS ORDERED: ZITH250 PO (10:57)
== END 2017-03-26 12:25 | disposition home or self-care (01) | DRG 392 ==
LOC: 4EA 15:44
PROVIDERS: Internal Medicine; Internal Medicine Gastroenterology
PROC: 0DB98ZX Excision of Duodenum, Via Natural or Artificial Opening Endoscopic, Diagnostic (ICD-10-PCS; principal; 2017-03-24 09:30)
PROC: 0DB68ZX Excision of Stomach, Via Natural or Artificial Opening Endoscopic, Diagnostic (ICD-10-PCS; principal; 2017-03-24 09:30)
PROC: 0DB58ZX Excision of Esophagus, Via Natural or Artificial Opening Endoscopic, Diagnostic (ICD-10-PCS; principal; 2017-03-24 09:30)
DX: K30 Functional dyspepsia (principal); C78.7 Secondary malignant neoplasm of liver and intrahepatic bile duct; C79.31 Secondary malignant neoplasm of brain; C79.51 Secondary malignant neoplasm of bone; R11.2 Nausea with vomiting, unspecified; G62.9 Polyneuropathy, unspecified; I10 Essential (primary) hypertension; Z87.891 Personal history of nicotine dependence; G89.3 Neoplasm related pain (acute) (chronic); Z85.3 Personal history of malignant neoplasm of breast; Z90.12 Acquired absence of left breast and nipple; Z92.21 Personal history of antineoplastic chemotherapy; Z92.3 Personal history of irradiation; Z79.891 Long term (current) use of opiate analgesic; Z79.52 Long term (current) use of systemic steroids; K76.0 Fatty (change of) liver, not elsewhere classified
CPT/HCPCS: 74249; 76705; 80048; 80053; 80069; 83735; 84100; 84443; 85025; 85610; 85730; 88305; A9270-GY; C9113; J0456; J2405; J2550